=== PATIENT | male | born 1945 | race Caucasian/White ===

== ENCOUNTER 2021-07-12 11:56 | Inpatient (IN) | payer OTHER, MEDICAID ==
[~2021-07-12] VITALS: Ht 162.6 cm; Wt 53.5 kg
[2021-07-12] MEDS ORDERED: NACL 0.9% 1,000 ML IV SCH (12:00)
--- NOTE | 2021-07-12 12:00 | NUR ---
BIBA TO ER BED 12
[2021-07-12 12:05] VITALS: BP 125/52
[2021-07-12] MEDS ORDERED: MORPHINE SULFATE 4 MG/ML SYR IVP ONE (12:10)
[2021-07-12 13:00] LABS: BASOPHILS % (AUTO) 0.7 % (0.0-2.0); EOSINOPHILS # (AUTO) 0.1 K/uL (0-0.4); EOSINOPHILS % (AUTO) 1.5 % (0.0-4.0); HEMATOCRIT 39.6 % (36-52); HEMOGLOBIN 13.2 g/dL (12.0-18.0); LYMPHOCYTES # (AUTO) 1.1 K/uL (2.0-11.5); LYMPHOCYTES % (AUTO) 17.2 % (20.5-51.1); MEAN CORPUSCULAR HEMOGLOBIN 30 pg (27-31); MEAN CORPUSCULAR HGB CONC 33 g/dL (33-37); MONOCYTES # (AUTO) 0.4 K/uL (0.8-1.0); NEUTROPHILS # (AUTO) 4.6 K/uL (1.8-7.7); NEUTROPHILS % (AUTO) 73.6 % (42.2-75.2); PLATELET COUNT (AUTO) 173 K/uL (140-450); RED CELL DISTRIBUTION WIDTH 15.7 % (11.6-13.7); WHITE BLOOD COUNT (AUTO) 6.3 K/uL (4.8-10.8)
[2021-07-12 13:19] LABS: LIPASE 30 U/L (73-393)
--- NOTE | 2021-07-12 13:19 | NUR ---
PT UNABLE TO GIVE URINE AT THIS TIME. PT GIVEN CUP OF WATER, FLUIDS INFUSING. DR MARTINEZ MADE AWARE
[2021-07-12 13:23] LABS: ALBUMIN 3.4 g/dL (3.4-5.0); ANION GAP 12.5 (8-16); ASPARTATE AMINOTRANSFERASE 28 U/L (15-37); CARBON DIOXIDE 24.5 mmol/L (21-32); CHLORIDE 101 mmol/L (98-107); CREATININE 0.7 mg/dL (0.6-1.3); GLUCOSE 150 mg/dL (74-106); SODIUM SERUM 134 mmol/L (136-145); UREA NITROGEN, BLOOD 12 mg/dL (7-18)
--- NOTE | 2021-07-12 13:40 | NUR ---
MIMI MARADIAGA SAMPLE COLLECTED AND HANDED TO THERAPIST RADIATION
[2021-07-12] MEDS: DEXT 5% /NACL 0.9% 1,000 ML IV SCH (17:12)
--- NOTE | 2021-07-12 18:00 | NUR ---
Patient will be admitted to care of DR DAI. Admited to MED SURG. Will go to [facility]. Belongings list completed. Report to RN AT BEDSIDE.
--- NOTE | 2021-07-12 18:22 | NUR ---
PT ARRIVED ON TO UNIT VIA WHEELCHAIR, ACCOMPANIED BY ER NURSE. PT IS AWAKE, ALERT, AND COOPERATIVE. RESPIRATIONS ARE EVEN AND UNLABORED ON ROOM AIR, 02 SAT AT 98%. HR REGULAR, 78 BPM. ABD IS NONTENDER, NONDISTENDED, WITH BOWEL SOUNDS NOTED. SKIN IS WARM AND DRY. PT HAS IV TO R WRIST, 20. PT HAS L ABOVE THE KNEE AMPUTATION, PT STATES SURGERY IS FROM 2017. VITAL SIGNS TAKEN, MRSA SCREEN DONE. CALL LIGHT WITHIN REACH. ALL SAFETY MEASURES IN PLACE. WILL CONTINUE TO MONITOR.
[2021-07-12] MEDS ORDERED: ONDANSETRON 4 MG/2 ML VIAL IM/IVP PRN (19:05)
[2021-07-12] MEDS ORDERED: guaiFENesin DM 200/20 MG-10 ML 10 ML UDC PO PRN (19:05)
[2021-07-12] MEDS ORDERED: POTASSIUM CHLORIDE 10 MEQ TABER PO PRN (19:05)
[2021-07-12] MEDS ORDERED: ACETAMINOPHEN 325 MG TAB PO PRN (19:05)
[2021-07-12] MEDS ORDERED: DOCUSATE SODIUM 100 MG GELCAP PO PRN (19:05)
[2021-07-12] MEDS ORDERED: ZOLPIDEM 5 MG TAB PO PRN (19:05)
--- NOTE | 2021-07-12 19:10 | NUR ---
ENDORSED PT TO DIVISION CONTROLLER NURSE FOR CONTINUITY OF CARE. PT IS STABLE.
[2021-07-12 20:00] VITALS: BP 117/67
--- NOTE | 2021-07-12 20:03 | NUR ---
PER LAB - THEY GOT ALREADY URINE SPECIMEN FOR URINALYSIS PROFILE .
--- NOTE | 2021-07-12 20:04 | NUR ---
US STAFF AWARE - PT FOR US KIDNEYS , BLADDER - THEY HAVE TO WAIT TILL PT. IS FULL BLADDER , PER SWEETBREAD TRIMMER SHE ALREADY TOLD TO PT TO HOLD HIS URINE - WILL FF UP .
[2021-07-12 20:08] LABS: CHOL/HDL RATIO 2.2 (1-4.5); FREE T4 (FREE THYROXINE) 0.88 ng/dL (0.76-1.46); MAGNESIUM 2.1 mg/dL (1.8-2.4); PHOSPHORUS 3.4 mg/dL (2.5-4.9); PROTHROMBIN TIME 9.9 secs (10.8-13.4); THYROID STIMULATING HORMONE 1.67 uIU/mL (0.34-3.74)
[2021-07-12] MEDS: TAMSULOSIN 0.4 MG CAP PO SCH (21:00)
[2021-07-12] MEDS: BLOOD GLUCOSE MONITORING 1 DEV DEV FS SCH (21:35)
--- NOTE | 2021-07-12 21:35 | NUR ---
PT. MAD SHE HE SAID HE REQUESTED TO 2 NURSES EARLIER ABOUT HIS OXYCODONE 5MG /TAB - BUT UNTILL NOW NO ONE APPROACG TO HIM - I TOLD TO THE PT LOLYO ONE TOLD ME ABOUT GHID REQUEST - BUT I WILL TELL IT TO THE DOCTOR . HE SAID HE NEED IT VERY BADLY BEC . HE IS SUFFERING PHANTOM PAIN .
[2021-07-12] MEDS: HYDROcodone/APAP 7.5/325 MG 1 TAB PO PRN (23:11)
[2021-07-13] VITALS: BP_SYST 115; BP_DIAS 70; BP_DIAS 82
--- NOTE | 2021-07-13 02:41 | NUR ---
FF UP REGARDING URINALYSIS PROFILE - PER LAB THE URINE THEY RECEIVED FROM ER IS VERY OLD . WILL COLLECT NEW ONE .
[2021-07-13 04:00] VITALS: BP 111/71
--- NOTE | 2021-07-13 04:00 | NUR ---
ROUNDS , BP WNL , O2 SAT WNL , BEARABLE LEG PAIN HE SAID. CALL LIGHT WITHIN REACH .
[2021-07-13] MEDS: HYDROcodone/APAP 7.5/325 MG 1 TAB PO PRN (05:18)
[2021-07-13] MEDS: DEXT 5% /NACL 0.9% 1,000 ML IV SCH ×2 (05:28→19:41)
--- NOTE | 2021-07-13 06:00 | NUR ---
URINE SPECIMEN WILL SENT TO LAB .
[2021-07-13 06:10] LABS: APPEARANCE,URINE CLEAR (CLEAR); BILIRUBIN,URINE NEGATIVE (NEGATIVE); BLOOD, URINE NEGATIVE (NEGATIVE); COLOR,URINE YELLOW (YELLOW); LEUKOCYTE ESTERASE ,URINE NEGATIVE (NEGATIVE); NITRITE, URINE NEGATIVE (NEGATIVE); UGLUCOSE 3+ (NEGATIVE)
[2021-07-13 06:18] LABS: ANION GAP 8.3 (8-16); CARBON DIOXIDE 26.5 mmol/L (21-32); CHLORIDE 103 mmol/L (98-107); CREATININE 0.7 mg/dL (0.6-1.3); GLUCOSE 267 mg/dL (74-106); POTASSIUM 3.8 mmol/L (3.5-5.1); SODIUM SERUM 134 mmol/L (136-145); UREA NITROGEN, BLOOD 11 mg/dL (7-18)
[2021-07-13 06:21] LABS: BASOPHILS # (AUTO) 0.1 K/uL (0.00-0.22); BASOPHILS % (AUTO) 0.9 % (0.0-2.0); EOSINOPHILS # (AUTO) 0.1 K/uL (0-0.4); EOSINOPHILS % (AUTO) 1.3 % (0.0-4.0); HEMATOCRIT 35.7 % (36-52); HEMOGLOBIN 11.9 g/dL (12.0-18.0); LYMPHOCYTES % (AUTO) 16.2 % (20.5-51.1); MEAN CORPUSCULAR HEMOGLOBIN 30 pg (27-31); MEAN CORPUSCULAR HGB CONC 33 g/dL (33-37); MEAN CORPUSCULAR VOLUME 88.9 fL (80-94); MONOCYTES # (AUTO) 0.4 K/uL (0.8-1.0); MONOCYTES % (AUTO) 6.9 % (1.7-9.3); NEUTROPHILS # (AUTO) 4.7 K/uL (1.8-7.7); NEUTROPHILS % (AUTO) 74.7 % (42.2-75.2); PLATELET COUNT (AUTO) 175 K/uL (140-450); RED BLOOD CELL COUNT(AUTO) 4.01 MIL/uL (4.20-6.10); RED CELL DISTRIBUTION WIDTH 15.4 % (11.6-13.7); WHITE BLOOD COUNT (AUTO) 6.2 K/uL (4.8-10.8)
--- NOTE | 2021-07-13 06:30 | NUR ---
REVIEWING THE IVF - FOUND PT IS NOT NPO , ON REG , DIET - ON D5 NSS , AT 150 CC OF PRESENT IVF DEC. REG. FROM 75 TO 15 - WILL INFORM DR. DAI IF HE AGREE W/ D5 NSS - WILL REG BACK TO 75CC/HR .- WILL ENDORSE .
--- NOTE | 2021-07-13 06:59 | NUR ---
PATIENT HAS BEEN SCREENED AND CATEGORIZED MODERATE NUTRITION RISK. PATIENT WILL BE SEEN WITHIN 3-5 DAYS OF ADMISSION. / BRE [address]
[2021-07-13] MEDS: INSULIN LISPRO SLIDING SCALE 100 UNITS/ML VIAL SUBQ PRN ×3 (07:04→17:29)
[2021-07-13] MEDS: BLOOD GLUCOSE MONITORING 1 DEV DEV FS SCH ×4 (07:04→21:45)
[2021-07-13 07:09] LABS: T4 (THYROXINE) 6.8 ug/dL (4.5-12.0)
--- NOTE | 2021-07-13 07:35 | NUR ---
ENDORSED TO PATEL WRAY - I TOLD HER I DECREASEED THE IVF TO 15CC /HR AT AROUND 06:30 AM AND I INFORMED DR. DAI ABOUT IT THRU TEXT - I TOLD TO PATEL KWON SHE HAVE TO FF UP IF DR. DAI WILL HAVE FURTHER ORDERS ABOUT IT . Addendum: 07/13/21 at 08 by Pam De La Garza RN PER US SCHOOL BUS DRIVER THEY DONE KIDNEYS US AT INCLUDING THE ED US BLADDER . Addendum: 07/13/21 at 0803 by Pam De La Garza RN I SHOWED TO PATEL FONSECA MY TEXT MSG TO DR. DAI . I INFORM DR. DAI AT 0500 AM PT HAD SLIGHT CHEST PAIN , BUT ALL V/S ARE OK .
[2021-07-13 07:43] LABS: RBC,URINE 0-5 /HPF (0-5); WBC,URINE 0-5 /HPF (0-5)
[2021-07-13 07:44] LABS: CALCIUM OXALATE CRYSTALS,UR None Seen /HPF (None Seen); OTHER CRYSTALS,URINE None Seen /HPF (None Seen); TRICHOMONAS,URINE None Seen /HPF (None Seen); TRIPLE PHOSPHATE CRYSTAL,UR None Seen /HPF (None Seen); URIC ACID CRYSTALS,URINE None Seen /HPF (None Seen); URINE AMORPHOUS URATE None Seen /HPF (None Seen); YEAST,URINE None Seen /HPF (None Seen)
[2021-07-13 07:45] LABS: COARSE GRANULAR CASTS,URINE None Seen /LPF (None Seen); FINE GRANULAR CASTS,URINE None Seen /LPF (None Seen); HYALINE CASTS, URINE None Seen /LPF (None Seen); OTHER CASTS, URINE None Seen /LPF (None Seen); RED BLOOD CELL CASTS,URINE None Seen /LPF (None Seen); WAXY CASTS,URINE None Seen /LPF (None Seen)
[2021-07-13 08:00] VITALS: BP 104/53
[2021-07-13] MEDS: TAMSULOSIN 0.4 MG CAP PO SCH (09:00)
[2021-07-13] MEDS: PANTOPRAZOLE 40 MG TABEC PO SCH (09:00)
--- NOTE | 2021-07-13 09:10 | NUR ---
RECEIVED ENDORSEMENT FROM PM SHIFT NURSE WITH PATIENT IN STABLE CONDITION. BARRY METZGER PATENT. INFORMED DR. DAI THAT PATIENT HAS DM, AND IV FLUID D5NS HAS SUGAR PER PM NURSE ENDORSEMENT. DR. DAI STATE THAT IS OKAY BECAUSE PATIENT HAS NOT EAT GOOD FOR FEW DAYS. WILL CONTINUE TO MONITOR
--- NOTE | 2021-07-13 10:18 | NUR ---
P.T. NOTES P.T. EVAL COMPLETED; REFER TO EVAL FOR DETAILS.
--- NOTE | 2021-07-13 11:42 | NUR ---
DC PLANNIN YRS OLD MALE PATIENT WAS ADMITTED FROM HOME WITH A DX OF ABDOMINAL PAIN . PATIENT HAS A HISTORY OF HTN,DM, CAD S/P 2 CARDIAC STENTS AND AORTIC VALVE REPLACEMENT. BPH, AND LEFT AKA. CXR SHOWING LEFT APICAL SCARING AND FIBROSIS. CT ABD/PELVIS SHOWED NO BOWEL OBSTRUCTION . RENAL US SHOWED CHRONIC MEDICAL RENAL DISEASE. RAPID COVID TEST NEGATIVE. ADMINISTERED IVF, AND CONTINUED HOME MEDS. DC PLAN TO RETURN TO [facility] WHEN STABLE. CM TO FOLLOW
[2021-07-13 16:00] VITALS: BP 118/59
--- NOTE | 2021-07-13 19:47 | NUR ---
ENDORSE PT TO PM SHIFT W/ STABLE CONDITION, PIV Daniela HAND PATENT. IV INFUSING
[2021-07-13 20:00] VITALS: BP 120/61
--- NOTE | 2021-07-13 20:00 | NUR ---
REVIEWED AND DISCUSSED PLAN OF CARE WITH INDRA BARTH
[2021-07-14] VITALS: BP 115/64
[2021-07-14 04:00] VITALS: BP 126/64
[2021-07-14] MEDS: BLOOD GLUCOSE MONITORING 1 DEV DEV FS SCH ×2 (06:34→11:26)
[2021-07-14] MEDS: INSULIN LISPRO SLIDING SCALE 100 UNITS/ML VIAL SUBQ PRN ×2 (06:36→12:21)
--- NOTE | 2021-07-14 07:05 | NUR ---
ENDORSED REPORT TO AM NURSE FOR CONTINUITY OF CARE. ALL NEEDS MET THIS SHIFT. PT NEEDS A WALKER AND A W/C FOR CONTINUED AMBULATION SUPPORT. A&OX4. INDEPENDENT TO BATHROOM WILL CALL TO HAVE IVF UNHOOKED. NAD. WILL CONTINUE TO MONITOR.
--- NOTE | 2021-07-14 07:10 | NUR ---
RECEIVED REPORT FROM CITY EDITOR NURSE FOR CONTINUITY OF CARE. PT ASLEEP IN BED, BREATHING SYMMETRICAL ON ROOM AIR. FLACC O. LEFT WRIST 22G RUNNING D5NS AT 75CC. CALL LIGHT WITHIN REACH. ALL SAFETY MEASURES IN PLACE.
[2021-07-14 07:22] LABS: EOSINOPHILS # (AUTO) 0.1 K/uL (0-0.4); HEMOGLOBIN 11.7 g/dL (12.0-18.0); LYMPHOCYTES % (AUTO) 24.2 % (20.5-51.1); MEAN CORPUSCULAR HEMOGLOBIN 30 pg (27-31); MEAN CORPUSCULAR HGB CONC 33 g/dL (33-37); MEAN CORPUSCULAR VOLUME 88.9 fL (80-94); MONOCYTES # (AUTO) 0.4 K/uL (0.8-1.0); MONOCYTES % (AUTO) 9.5 % (1.7-9.3); NEUTROPHILS # (AUTO) 2.6 K/uL (1.8-7.7); NEUTROPHILS % (AUTO) 63.3 % (42.2-75.2); PLATELET COUNT (AUTO) 188 K/uL (140-450); RED BLOOD CELL COUNT(AUTO) 3.94 MIL/uL (4.20-6.10); RED CELL DISTRIBUTION WIDTH 15.7 % (11.6-13.7)
[2021-07-14 07:28] LABS: ANION GAP 13.7 (8-16); CARBON DIOXIDE 23.8 mmol/L (21-32); CHLORIDE 103 mmol/L (98-107); CREATININE 0.6 mg/dL (0.6-1.3); GLUCOSE 211 mg/dL (74-106); POTASSIUM 3.5 mmol/L (3.5-5.1); SODIUM SERUM 137 mmol/L (136-145); UREA NITROGEN, BLOOD 5 mg/dL (7-18)
[2021-07-14] MEDS ORDERED: MIRT-91 PO (07:37)
[2021-07-14 08:00] VITALS: BP 126/69
[2021-07-14] MEDS: DEXT 5% /NACL 0.9% 1,000 ML IV SCH (08:08)
[2021-07-14] MEDS: TAMSULOSIN 0.4 MG CAP PO SCH (08:19)
[2021-07-14] MEDS: PANTOPRAZOLE 40 MG TABEC PO SCH (08:20)
--- NOTE | 2021-07-14 08:34 | NUR ---
SCHEDULED AM MEDICATION GIVEN ORDERED. ASSISTED PT TO RESTROOM, PT WITH LEFT LEG AKA. PT FOR DISCHARGE TODAY
--- NOTE | 2021-07-14 08:44 | NUR ---
CURRENT INFUSING IVF STILL HAS 300CC LEFT.
[2021-07-14 08:48] VITALS: BP 126/69
--- NOTE | 2021-07-14 10:50 | NUR ---
CALLED [facility] AND PROVIDED THE TRANSPORTATION CODE #[id number]. CALLED [facility] AND SPOKE TO WENDY THOMAS TIME FOR TIRE SHOP MECHANIC IS 2 PM. PATEL BILLY MADE AWARE.
--- NOTE | 2021-07-14 11:50 | NUR ---
CALLED JOSE FROM [facility] AND GAVE REPORT. CALLED DAUGHTER SARAH, LEFT A MESSAGE
--- NOTE | 2021-07-14 14:12 | NUR ---
PT DISCHARGED BACK TO [facility] PICKED UP BY [facility] VIA WHEELCHAIR WITH PAPERWORKS AND BELONGINGS, IN STABLE CONDITION
== END 2021-07-14 14:05 | disposition home or self-care (01) | DRG 391 ==
LOC: MED 11:56 → MTU 15:20 → MMU 15:20 → MTU 18:00
PROVIDERS: ADMIT Family Medicine; ATTEND Family Medicine
DX: R10.30 Lower abdominal pain, unspecified (principal); I50.43 Acute on chronic combined systolic (congestive) and diastolic (congestive) heart failure; E87.1 Hypo-osmolality and hyponatremia; I24.9 Acute ischemic heart disease, unspecified; T82.857A Stenosis of other cardiac prosthetic devices, implants and grafts, initial encounter; E11.65 Type 2 diabetes mellitus with hyperglycemia; R62.7 Adult failure to thrive; D64.9 Anemia, unspecified; N20.0 Calculus of kidney; E86.0 Dehydration; K59.00 Constipation, unspecified; N40.0 Benign prostatic hyperplasia without lower urinary tract symptoms; I11.0 Hypertensive heart disease with heart failure; Z20.822 Contact with and (suspected) exposure to COVID-19; Y83.1 Surgical operation with implant of artificial internal device as the cause of abnormal reaction of the patient, or of later complication, without mention of misadventure at the time of the procedure; I25.10 Atherosclerotic heart disease of native coronary artery without angina pectoris; F32.A Depression, unspecified; E78.5 Hyperlipidemia, unspecified; E11.51 Type 2 diabetes mellitus with diabetic peripheral angiopathy without gangrene; Z79.01 Long term (current) use of anticoagulants; Z95.2 Presence of prosthetic heart valve; Z88.8 Allergy status to other drugs, medicaments and biological substances; Z95.5 Presence of coronary angioplasty implant and graft; Z89.612 Acquired absence of left leg above knee; Z87.442 Personal history of urinary calculi; Z85.810 Personal history of malignant neoplasm of tongue; Y92.89 Other specified places as the place of occurrence of the external cause; Z68.20 Body mass index [BMI] 20.0-20.9, adult
CPT/HCPCS: 36415; 71045; 76770; 80048; 80053; 81001; 82150; 82948; 83036; 83605; 83690; 83735; 83880; 84100; 84436; 84439; 84443; 84479; 84484; 85025; 85610; 85730; 87040; 87081; 87086; 92610; 93005; 96360; 97110; 97112; 99285; J1815; J2270; J7030; Q0092

== ENCOUNTER 2021-07-17 07:26 | Emergency (ER) | payer OTHER, MEDICAID ==
[~2021-07-17] VITALS: Ht 162.6 cm; Wt 53.5 kg
[~2021-07-17 07:26] MED LIST: MIRT-91 PO
[2021-07-17 07:29] VITALS: BP 139/59
[2021-07-17] MEDS ORDERED: KETOROLAC 30 MG/ML VIAL IM ONE (07:50)
--- NOTE | 2021-07-17 08:18 | NUR ---
ULTRASOUND AT BEDSIDE
--- NOTE | 2021-07-17 13:00 | NUR ---
Patient to be transferred to [facility]. Is being transferred due to LOWER LEVEL OF CARE. Receiving facility has accepting physician and available space. ER physician has signed transfer form. Patient or responsible republican has agreed to transfer and signed form. Patient belongings inventoried and will be sent with patient. Copy of nursing notes, lab reports, EKG, Physicians Orders and X-rays to be sent with patient. Report called to RN at receiving facility. [facility] has been called for transfer. ETA is 1430
[2021-07-17 14:42] VITALS: BP 135/62
--- NOTE | 2021-07-17 14:47 | NUR ---
PATIENT ACCOMPANIED BY [facility] [place]. ASSISTED BY WHEEL CHAIR PATIENT AAOX4 UPON LEAVING THE HOSPITAL, NO COMPLAINTS AT THE MOMENT, IMAGING RESULTS PROVIDED
== END 2021-07-17 14:47 ==
LOC: MED 07:26
DX: I70.208 Unspecified atherosclerosis of native arteries of extremities, other extremity (principal); E11.9 Type 2 diabetes mellitus without complications; I10 Essential (primary) hypertension; Z98.890 Other specified postprocedural states; Z79.899 Other long term (current) drug therapy; Z88.8 Allergy status to other drugs, medicaments and biological substances
CPT/HCPCS: 73030; 73080; 93922; 93930; 93971; 96372; 99284; J1885; Q0092

== ENCOUNTER 2021-09-26 13:48 | Inpatient (IN) | payer OTHER ==
[~2021-09-26] VITALS: Ht 162.6 cm; Wt 53.3 kg
[2021-09-26] VITALS (7 sets, daily range): BP systolic 94–142; BP diastolic 56–74
[~2021-09-26 13:48] MED LIST changes: +ASPI-1822 PO; +ATOR20TA PO; +CEPH-588 PO; +CLOP75TA26 PO; +FURO-572 PO
--- NOTE | 2021-09-26 14:02 | NUR ---
KAMRAN MURGUIA FROM [facility] TAKEN TO ER BED 2.
[2021-09-26] MEDS ORDERED: ALBUTEROL SULFATE/IPRATROPIU 3 ML SOL IH ONE ×3 (14:03→17:15)
--- NOTE | 2021-09-26 14:04 | NUR ---
DR. DE LA TORRE AT PT BEDSIDE FOR FURTHER EVALUATION.
[2021-09-26] MEDS ORDERED: methylPREDNISolone SS 125 MG/2 ML VIAL IVP ONE (14:05)
[2021-09-26] MEDS ORDERED: INTUBATION KIT MC ONE (14:06)
--- NOTE | 2021-09-26 14:14 | NUR ---
PT PLACED ON BIPAP PER RT 50% FI02. ERMD AT BEDSIDE.
--- NOTE | 2021-09-26 14:18 | NUR ---
RT AT PT BEDSIDE FOR BREATHING TX.
--- NOTE | 2021-09-26 14:20 | NUR ---
76 Y/O MALE BIBA FROM [facility] C/O SOB X1HR. MS EMT PT WAS FOUND TRIPOD POSITION 84% ON 2L NC. PT PLACED ON 15L NRB. ON ARRIVAL PT TITRATED DOWN TO 2L NC. PT SPO2 87%. ERMD MADE AWARE. PT STILL TRIPOD POSITION DIAPHORETIC. ERMD TO BEDSIDE AND RT TO BEDSIDE. PER EMD PREPARING FOR BIPAP AT THIS TIME. DENIES N/V/D, DENIES FEVER/CHILLS. PMH: DM, HTN, HLD, COPD, LEFT BKA. ALLERGIES: METFORMIN
--- NOTE | 2021-09-26 14:22 | NUR ---
RT AT PT BEDSIDE FOR BREATHING TX AND ABG.
--- NOTE | 2021-09-26 14:22 | NUR ---
COURT CRIER AT PT BEDSIDE.
[2021-09-26 14:32] LABS: BASOPHILS # (AUTO) 0.2 K/uL (0.00-0.22); EOSINOPHILS # (AUTO) 0.1 K/uL (0-0.4); EOSINOPHILS % (AUTO) 0.9 % (0.0-4.0); HEMATOCRIT 39.5 % (36-52); HEMOGLOBIN 12.9 g/dL (12.0-18.0); LYMPHOCYTES # (AUTO) 2.7 K/uL (2.0-11.5); LYMPHOCYTES % (AUTO) 34.8 % (20.5-51.1); MEAN CORPUSCULAR HEMOGLOBIN 29 pg (27-31); MEAN CORPUSCULAR HGB CONC 33 g/dL (33-37); MEAN CORPUSCULAR VOLUME 90.1 fL (80-94); MONOCYTES # (AUTO) 0.5 K/uL (0.8-1.0); MONOCYTES % (AUTO) 6.4 % (1.7-9.3); NEUTROPHILS # (AUTO) 4.2 K/uL (1.8-7.7); NEUTROPHILS % (AUTO) 54.9 % (42.2-75.2); PLATELET COUNT (AUTO) 231 K/uL (140-450); RED BLOOD CELL COUNT(AUTO) 4.38 MIL/uL (4.20-6.10); RED CELL DISTRIBUTION WIDTH 16.1 % (11.6-13.7); WHITE BLOOD COUNT (AUTO) 7.7 K/uL (4.8-10.8)
--- NOTE | 2021-09-26 14:34 | NUR ---
PT PLACED ON BIPAP / RR 20 FIO2 40%. PT STATES RELIEF IN WOB. ABG TO BE DONE AT 1445. RN AND AWARE.
--- NOTE | 2021-09-26 14:47 | NUR ---
Meagan ribeiro in [facility] - 09/26/21 at 1456 by [email or web address] MIMI MARADIAGA SAMPLE COLLECTED AND WALKED TO LAB
--- NOTE | 2021-09-26 14:51 | NUR ---
COVID ASHWINI SWAB OBTAINED AND WALKED TO LAB
[2021-09-26 14:57] LABS: ALBUMIN 3.1 g/dL (3.4-5.0); ANION GAP 13.9 (8-16); ASPARTATE AMINOTRANSFERASE 58 U/L (15-37); CARBON DIOXIDE 24.6 mmol/L (21-32); CHLORIDE 102 mmol/L (98-107); GLUCOSE 182 mg/dL (74-106); POTASSIUM 4.5 mmol/L (3.5-5.1); SODIUM SERUM 136 mmol/L (136-145); TOTAL BILIRUBIN 0.7 mg/dL (0.0-1.0); UREA NITROGEN, BLOOD 14 mg/dL (7-18)
[2021-09-26] MEDS ORDERED: FUROSEMIDE 100 MG/10 ML VIAL IVP ONE (15:10)
[2021-09-26] MEDS ORDERED: VANCOMYCIN 1,000 MG in DEXTROSE 5% 250 ML IV ONE (15:25)
[2021-09-26] MEDS ORDERED: PIPERACILLIN/TAZOBACTAM 3.375 GM in DEXTROSE 5% 50 ML IV ONE (15:25)
[2021-09-26] MEDS ORDERED: PIPERACILLIN/TAZOBACTAM 3.375 GM VIAL IV ONE (15:50)
[2021-09-26] MEDS ORDERED: VANCOMYCIN 1,000 MG VIAL ONE (16:17)
--- NOTE | 2021-09-26 16:52 | NUR ---
Patient will be admitted to care of DR. REED. Belongings list completed. ER HOLD BED 2.
[2021-09-26] MEDS ORDERED: ZOLPIDEM 5 MG TAB PO PRN (17:10)
[2021-09-26] MEDS ORDERED: HYDROcodone/APAP 5/325 MG 1 TAB TAB PO PRN (17:10)
[2021-09-26] MEDS ORDERED: ACETAMINOPHEN 325 MG TAB PO PRN (17:10)
[2021-09-26] MEDS ORDERED: DOCUSATE SODIUM 100 MG GELCAP PO PRN (17:10)
[2021-09-26] MEDS ORDERED: SODIUM PHOS / POTASSIUM PHOS 1 PKT PDR PO PRN (17:10)
[2021-09-26] MEDS ORDERED: ONDANSETRON 4 MG/2 ML VIAL IVP PRN (17:10)
[2021-09-26] MEDS ORDERED: MAG SULF 2000 MG/WATER PREMIX 50 ML IV PRN (17:10)
[2021-09-26] MEDS ORDERED: MORPHINE SULFATE 2 MG/ML SYR IVP PRN (17:10)
[2021-09-26] MEDS ORDERED: LORazepam 2 MG/ML VIAL IM/IVP PRN (17:10)
[2021-09-26] MEDS ORDERED: POTASSIUM CHLORIDE 10 MEQ TABER PO PRN (17:10)
[2021-09-26] MEDS ORDERED: LORazepam 1 MG TAB PO PRN (17:20)
--- NOTE | 2021-09-26 17:31 | NUR ---
DR. REED AT PT BEDSIDE FOR FURTHER EVALUATION.
[2021-09-26] MEDS ORDERED: DEXTROSE 50% 50 ML SYR IVP PRN (17:35)
[2021-09-26] MEDS: NACL 0.9% 1,000 ML IV SCH (17:48)
--- NOTE | 2021-09-26 17:57 | NUR ---
PT BP 78/[address] REED LEVO TO BE STARTED PERIPHERAL.
[2021-09-26] MEDS ORDERED: FUROSEMIDE 20 MG/2 ML VIAL IVP SCH (18:00)
[2021-09-26] MEDS ORDERED: ENOXAPARIN 60 MG/0.6 ML SYR SUBQ SCH (18:00)
[2021-09-26] MEDS ORDERED: NOREPINEPHRINE 4 MG in DEXTROSE 5% 250 ML IV PRN (18:00)
--- NOTE | 2021-09-26 18:03 | NUR ---
SPOKE WITH LISANDRO IN PHARMACY FOR LEVO DRIP.
[2021-09-26] MEDS ORDERED: SLIDE SUBQ (18:13)
--- NOTE | 2021-09-26 18:25 | NUR ---
RI TAKEN TO ICU BED 2 WITH AIR CONDITIONING UNIT TESTER, EMT, AND RT. RECEIVED BEDSIDE REPORT FROM MAGALY AIR CONDITIONING UNIT TESTER FOR CONTINUITY OF CARE. PT SITTING UP IN THE BED, AAOX4, LETHARGIC, FOLLOWS COMMANDS. ON BIPAP FIO2 25%, R 20, IPAP 12, EPAP 6. PT HAS LABORED BREATHING WITH ACCESSORY MUSCLE USE. ST ON BEDSIDE MONITOR. HR 108, BP 118/71. BOWEL SOUNDS ACTIVE. CONTINENT OF BOWEL AND BLADDER. URINAL AT BEDSIDE. MILD WEAKNESS, SKIN INTACT. L HAND 20G INFUSING NS AT 100 ML/HR. LEVOPHED ON STANDBY, DID NOT ADMINISTER YET. STANDARD PRECAUTIONS IN PLACE. SAFETY PRECAUTIONS MET. CALL LIGHT WITHIN REACH. INITIAL ASSESSMENT COMPLETE, WILL CONTINUE TO CLOSELY MONITOR.
[2021-09-26 18:33] LABS: CHOL/HDL RATIO 2.4 (1-4.5); FREE T4 (FREE THYROXINE) 2.28 ng/dL (0.76-1.46); PHOSPHORUS 3.3 mg/dL (2.5-4.9); THYROID STIMULATING HORMONE 0.27 uIU/mL (0.34-3.74)
--- NOTE | 2021-09-26 18:36 | NUR ---
GAVE REPORT TO PATEL AMAYA AT ICU BEDSIDE.
--- NOTE | 2021-09-26 18:37 | NUR ---
Patient will be admitted to care of DR. REED. Admited to ICU. Will go to room 2. Belongings list completed. Report to PATEL AMAYA.
[2021-09-26] MEDS ORDERED: ALBUTEROL SULFATE/IPRATROPIU 3 ML SOL IH PRN (18:55)
--- NOTE | 2021-09-26 19:20 | NUR ---
DR SANCHEZ AT BEDSIDE.UPDATED ON PTS PRESENT CONDITION.QUESTIONS ANSWERED.NO ORDERS RECEIVED AT THIS TIME
--- NOTE | 2021-09-26 19:20 | NUR ---
ENDORSED BEDSIDE REPORT TO LANRE LEDESMA RN FOR CONTINUITY OF CARE. PT HAS LABORED BREATHING, ACCESSORY MUSCLE USE, AND ANXIETY AT THIS TIME. VSS. BP 115/67. SPO2 96%.
[2021-09-26 19:22] LABS: APPEARANCE,URINE CLEAR (CLEAR); BILIRUBIN,URINE NEGATIVE (NEGATIVE); BLOOD, URINE NEGATIVE (NEGATIVE); COLOR,URINE YELLOW (YELLOW); LEUKOCYTE ESTERASE ,URINE NEGATIVE (NEGATIVE); NITRITE, URINE NEGATIVE (NEGATIVE); UGLUCOSE NEGATIVE (NEGATIVE)
--- NOTE | 2021-09-26 19:30 | NUR ---
ASSUMED CARE OF PT.INITIAL ASSESSMENT COMPLETED.PT ALERT AND ORIENTED X4.ST NOTED ON MONITOR.ON BIPAP 03/05 RATE 20 FI02 25%.SOB ON EXERTION NOTED.W/PERIPHERAL IV TO LT HAND G20 INTACT, INFUSING ORDERED IVF.DENIES N/V.ABLE TO USE URINAL.SKIN INTACT.W/LT AKA NOTED.DENIES PAIN AT THIS TIME.WILL CONTINUE TO CLOSELY MONITOR PT
[2021-09-26 19:33] LABS: PROTHROMBIN TIME 10.5 secs (10.8-13.4)
[2021-09-26] MEDS: BLOOD GLUCOSE MONITORING 1 DEV DEV FS SCH (20:35)
[2021-09-26] MEDS: INSULIN LISPRO SLIDING SCALE 100 UNITS/ML VIAL SUBQ PRN (20:39)
[2021-09-26] MEDS ORDERED: LOVENOX 1MG/KG Q12H SUBQ SCH (21:00)
--- NOTE | 2021-09-26 21:00 | NUR ---
MESSAGE SENT TO DR REED, PT WANTS TO DRINK,NO DIET ORDERED.NEW ORDER RECEIVED.PLACED PT ON DIABETIC/CARDIAC DIET
[2021-09-26] MEDS ORDERED: VANCOMYCIN PER PHARMACY MC PRN (22:00)
[2021-09-26] MEDS: PIPERACILLIN/TAZOBACTAM 3.375 GM in DEXTROSE 5% 50 ML IV SCH (22:16)
--- NOTE | 2021-09-26 23:50 | NUR ---
PHONE CALL FROM DR REED; UPDATED ON PTSP RESENT CONDITION.MADE AWARE PT WAS COMPLAINING OF CHEST PAIN 5/10 EARLIER, PT HAS MORPHINE PRN MEDS AND GIVEN AT THE TIME OF CHEST PAIN.NO NEW ORDERS RECEIVED
[2021-09-27] VITALS (13 sets, daily range): BP systolic 88–134; BP diastolic 56–78
--- NOTE | 2021-09-27 00:48 | NUR ---
MRSA AND FLU SPECIMEN COLLECTED AND SENT TO LAB.
--- NOTE | 2021-09-27 01:00 | NUR ---
PT AWAKE, VOIDED USING URINAL, ADEQUATE AMT OF CLEAR YELLOW URINE. SAFETY PRECAUTION IN PLACE.CALL LIGHT WITHIN REACH
--- NOTE | 2021-09-27 02:34 | NUR ---
PT ASLEEP, EASILY AROUSABLE.STILL ON BIPAP FIO2 25%.INTERMITTENT NON PRODUCTIVE COUGHING NOTED. NO S/SX OF PAIN NOTED.CALL LIGHT WITHIN REACH.WILL CONTINUE TO CLOSELY MONITOR PT
[2021-09-27] MEDS: NACL 0.9% 1,000 ML IV SCH ×3 (03:00→23:10)
[2021-09-27] MEDS ORDERED: VANCOMYCIN HCL 750 MG in DEXTROSE 5% 250 ML IV SCH (04:30)
[2021-09-27] MEDS: PIPERACILLIN/TAZOBACTAM 3.375 GM in DEXTROSE 5% 50 ML IV SCH ×3 (05:18→21:43)
--- NOTE | 2021-09-27 05:24 | NUR ---
PT AWAKE; OFFERED MORNING CARE, PT REFUSED, STATED "IT'S TOO COLD".CONDITION REMAINS UNCHANGED.STILL ON BIPAP 25% FIO2.SOB ON EXERTION STILL NOTED.DENIES PAIN AT THIS TIME
[2021-09-27 05:32] LABS: BASOPHILS % (AUTO) 0.3 % (0.0-2.0); HEMATOCRIT 33.5 % (36-52); HEMOGLOBIN 11.1 g/dL (12.0-18.0); LYMPHOCYTES # (AUTO) 0.6 K/uL (2.0-11.5); LYMPHOCYTES % (AUTO) 20.8 % (20.5-51.1); MEAN CORPUSCULAR HEMOGLOBIN 30 pg (27-31); MEAN CORPUSCULAR HGB CONC 33 g/dL (33-37); MEAN CORPUSCULAR VOLUME 89.9 fL (80-94); MONOCYTES # (AUTO) 0.1 K/uL (0.8-1.0); MONOCYTES % (AUTO) 2.3 % (1.7-9.3); NEUTROPHILS # (AUTO) 2.2 K/uL (1.8-7.7); NEUTROPHILS % (AUTO) 76.6 % (42.2-75.2); PLATELET COUNT (AUTO) 218 K/uL (140-450); RED BLOOD CELL COUNT(AUTO) 3.73 MIL/uL (4.20-6.10); RED CELL DISTRIBUTION WIDTH 16.2 % (11.6-13.7); WHITE BLOOD COUNT (AUTO) 2.8 K/uL (4.8-10.8)
[2021-09-27 06:11] LABS: ALBUMIN 2.7 g/dL (3.4-5.0); ASPARTATE AMINOTRANSFERASE 33 U/L (15-37); CHLORIDE 100 mmol/L (98-107); CREATININE 1.1 mg/dL (0.6-1.3); GLUCOSE 400 mg/dL (74-106); MAGNESIUM 1.7 mg/dL (1.8-2.4); SODIUM SERUM 135 mmol/L (136-145); TOTAL BILIRUBIN 0.6 mg/dL (0.0-1.0); UREA NITROGEN, BLOOD 22 mg/dL (7-18)
--- NOTE | 2021-09-27 07:15 | NUR ---
RECEIVED BEDSIDE REPORT FROM LANRE LEDESMA RN FOR CONTINUITY OF CARE. PT SITTING UP IN THE BED, AAOX4, LETHARGIC, FOLLOWS COMMANDS. ON BIPAP FIO2 25%, R 20, IPAP 12, EPAP 6. SR ON BEDSIDE MONITOR. BOWEL SOUNDS ACTIVE. CONTINENT OF BOWEL AND BLADDER. URINAL AT BEDSIDE. MILD WEAKNESS, SKIN INTACT. L HAND 20G INFUSING NS AT 100 ML/HR. LEVOPHED ON STANDBY. BP 117/62. STANDARD PRECAUTIONS IN PLACE. SAFETY PRECAUTIONS MET. CALL LIGHT WITHIN REACH. INITIAL ASSESSMENT COMPLETE, WILL CONTINUE TO CLOSELY MONITOR.
[2021-09-27] MEDS: BLOOD GLUCOSE MONITORING 1 DEV DEV FS SCH ×4 (07:39→21:49)
[2021-09-27] MEDS: INSULIN LISPRO SLIDING SCALE 100 UNITS/ML VIAL SUBQ PRN ×3 (07:44→21:52)
[2021-09-27] MEDS: ENOXAPARIN 60 MG/0.6 ML SYR SUBQ SCH ×2 (07:45→21:43)
--- NOTE | 2021-09-27 07:46 | NUR ---
PT IS AWAKE AND ALERT, SPOKE WITH RN, PT IS SATURATING 96% ON 25%FIO2. PT IS ON LASIK AND BREATH SOUNDS ARE CLEAR, WILL PLACE PT ON 2L N/C AT THIS TIME AND CONTINUE TO MONITOR.
--- NOTE | 2021-09-27 08:05 | NUR ---
RECEIVED CALL FROM CIRCULAR CLERK, PT WAS IN DISTRESS, SATURATION WERE 95%, PT WAS TRIPODING AND GRUNTING, PLACED PATIENT ON BI-PAP AT PREVIOUS SETTINGS. PATIENT WAS IN NO DISTRESS AND COMFORTABLE ON THE BI-PAP, SATURATION 97%, BREATH SOUNDS WERE CLEAR. WILL CONTINUE TO MONITOR
[2021-09-27] MEDS: FUROSEMIDE 40 MG/4 ML VIAL IVP SCH ×2 (08:08→17:24)
--- NOTE | 2021-09-27 08:12 | NUR ---
PATIENT HAS BEEN SCREENED AND CATEGORIZED HIGH NUTRITION RISK. PATIENT WILL BE SEEN WITHIN 1-2 DAYS OF ADMISSION. [address]
--- NOTE | 2021-09-27 09:15 | NUR ---
SEEN AND EXAMINED BY DR REED
--- NOTE | 2021-09-27 09:54 | NUR ---
RECEIVED PHONE CALL FROM PT FAMILYSARAH. UPDATED REGARDING PT CONDITION. ALL QUESTIONS ANSWERED AT THIS TIME.
[2021-09-27] MEDS: LORazepam 2 MG/ML VIAL IVP PRN (11:20)
--- NOTE | 2021-09-27 11:20 | NUR ---
PT ANXIOUS, MEDICATED WITH 1MG ATIVAN IVP PER PRN ORDERS. WASTE WITH ABRAHAM SWEENEY. PT USED BEDSIDE COMMODE. MODERATE AMOUNT OF FORMED BROWN STOOL AND 250ML CLEAR YELLOW URINE. REPOSITIONED IN THE BED. ANXIETY/SOB WITH ACTIVITY. RT AWARE, SPOKE WITH PT. WILL CONTINUE TO CLOSELY MONITOR.
--- NOTE | 2021-09-27 12:05 | NUR ---
PT CONFUSED. SPEECH MUMBLED. PREVIOUSLY SPOKE IN LITHUANIAN WITH STAFF, ONLY SPEAKING WALLISIAN NOW. PT TRYING TO GET OUT OF BED. REORIENTED AND REPOSITIONED. ALL NEEDS MET AT THIS TIME. WILL CONTINUE TO CLOSELY MONITOR.
--- NOTE | 2021-09-27 12:50 | NUR ---
PT SLEEPING, RESPIRATIONS EVEN AND UNLABORED. MAP 67. AROUSABLE TO SHAKING.
--- NOTE | 2021-09-27 12:55 | NUR ---
SEEN AND EXAMINED BY DR LEAL.
--- NOTE | 2021-09-27 14:08 | NUR ---
09/27/21 RD INITIAL ASSESSMENT COMPLETED PLEASE REFER TO NUTRITION ASSESSMENT UNDER CARE ACTIVITY FOR ESTIMATED NUTRITIONAL NEEDS. 1. CONTINUE CCHO 60GM, CARDIAC DIET TOLERATED 2. CONTINUE GLUCERNA TID FOR NUTRITION SUPPORT 3. MONITOR PO INTAKE AND BLOOD GLUCOSE LEVELS 4. RD TO FOLLOW-UP 2-3 DAYS, HIGH RISK BRE [address]RB[address] RD
--- NOTE | 2021-09-27 14:30 | NUR ---
PT AWAKE, AAOX4. FOLLOWING COMMANDS.
--- NOTE | 2021-09-27 14:50 | NUR ---
RECEIVED ENDORSEMENT FROM ICU NURSE JOHNSON FOR CONTINUITY OF CARE.
--- NOTE | 2021-09-27 14:50 | NUR ---
ENDORSED REPORT TO [facility] NURSE VIA TELEPHONE FOR CONTINUITY OF CARE. ALL QUESTIONS ANSWERED AT THIS TIME. VSS, NO S/S ACUTE DISTRESS OR DISCOMFORT AT THIS TIME.
--- NOTE | 2021-09-27 15:15 | NUR ---
PT TAKEN VIA ICU BED TO TELE BED 120B W ASSIST FROM EMT. VSS, SR ON TRANSPORT MONITOR. SPO2 96%. NO S/S ACUTE DISTRESS.
--- NOTE | 2021-09-27 15:15 | NUR ---
PATIENT WHEELED BY ELIZABETH AND OTHER NURSE ON A GURNEY FROM ICU. PATIENT AWAKE ABLE TO RESPONDS. TRANSFER TO BED TOLERATED WELL. PATIENT WITH IV ON LEFT HAND TIAN 20 WITH MAGNESIUM INFUSING AT 25 CC/HOUR. PATIENT ON O2 VIA NASAL CANULA SATURATION AT 94%. PATIENT REFUSED TO LAY DOWN. PUT PILLOW ON HIS TABLE SO HE CAN REST HIS HEAD AND CHEST. NO COUGHING AT THIS TIME. REORIENTED TO ROOM, TV, CALL LIGHT, VISITING AND MEAL TIME.
--- NOTE | 2021-09-27 15:42 | NUR ---
PATIENT SEEN BY DR. MARIA.
--- NOTE | 2021-09-27 17:52 | NUR ---
PATIENT ASLEEP ON 2L/MIN IA NASAL CANULA. CALM AND NO DISTRESS. IV RUNNING AT 100 CC/HOURS OF NS. CALL LIGHT WITH IN EASY REACH. NO COUGHING OR CONGESTION NOTED.
--- NOTE | 2021-09-27 19:38 | NUR ---
GAVE REPORT TO FULL TIME NURSE FOR CONTINUITY OF CARE.
--- NOTE | 2021-09-27 19:39 | NUR ---
RECEIVED REPORT FROM AM NURSE. PATIENT IN BED AWAKE, ALERT X4. NO SOB NOTED. O2 AT 2L NC TOLERATING WELL. IVF NS INFUSING AT 100 ML/HR. PT HAS LEFT BKA. NO COMPLAINTS OF PAIN AT THIS TIME. ALL SAFETY MEASURES IN PLACE. CALL LIGHT WITHIN REACH. WILL CONTINUE TO MONITOR.
--- NOTE | 2021-09-27 21:20 | NUR ---
PATIENT PULLED OUT IV, STARTED A NEW PERIPHERAL IV ON THE LEFT FOREARM AND WRAPPED WITH GAUZE. PATIENT IN NO ACUTE DISTRESS. CALL LIGHT IN REACH. WILL CONTINUE TO MONITOR.
[2021-09-27] MEDS ORDERED: NACL 0.9% 1,000 ML IV ONE (21:30)
--- NOTE | 2021-09-27 21:30 | NUR ---
BP-88/60 P-[address] DAI WITH NEW ORDER OF NS BOLUS 1 LITER, NOTED AND CARRIED OUT.
[2021-09-27] MEDS ORDERED: MORPHINE SULFATE 2 MG/ML SYR IVP PRN (22:30)
--- NOTE | 2021-09-27 22:30 | NUR ---
AFTER 1 LITER NS BOLUS BP WENT UP TO 111/66 P-96. DR DAI MADE AWARE. PER DR DAI TO NOTIFY HIM IF BP GOES UP OR GOES DOWN AFTER THE BOLUS.
--- NOTE | 2021-09-27 22:39 | NUR ---
PATIENT COMPLAINED OF CHEST PAIN. PLACE A CALL TO DR. DAI WITH ORDERS, CARRIED OUT.
[2021-09-28] VITALS: BP 107/75
[2021-09-28] MEDS: LORazepam 2 MG/ML VIAL IVP PRN (01:04)
[2021-09-28 04:00] VITALS: BP 97/60
--- NOTE | 2021-09-28 04:44 | NUR ---
PATIENT KEEP TRYING TO GET OUT OF BED, PULLED IV X2. DR. DAI MADE AWARE WITH ORDER OF RESTRAINTS. BILATERAL SOFT WRIST RESTRAINT IN PLACE. CIRCULATION CHECKED. NO DISTRESS NOTED. WILL CONTINUE TO MONITOR.
[2021-09-28] MEDS: PIPERACILLIN/TAZOBACTAM 3.375 GM in DEXTROSE 5% 50 ML IV SCH ×3 (05:37→21:15)
--- NOTE | 2021-09-28 05:37 | NUR ---
ZOSYN IVPB ADMINISTERED PER MD ORDER.
[2021-09-28 05:39] LABS: BASOPHILS # (AUTO) 0.1 K/uL (0.00-0.22); BASOPHILS % (AUTO) 0.6 % (0.0-2.0); EOSINOPHILS # (AUTO) 0.1 K/uL (0-0.4); EOSINOPHILS % (AUTO) 0.7 % (0.0-4.0); HEMATOCRIT 34.6 % (36-52); HEMOGLOBIN 11.6 g/dL (12.0-18.0); LYMPHOCYTES # (AUTO) 1.8 K/uL (2.0-11.5); LYMPHOCYTES % (AUTO) 22.2 % (20.5-51.1); MEAN CORPUSCULAR HEMOGLOBIN 30 pg (27-31); MEAN CORPUSCULAR HGB CONC 33 g/dL (33-37); MEAN CORPUSCULAR VOLUME 89.3 fL (80-94); MONOCYTES # (AUTO) 0.5 K/uL (0.8-1.0); MONOCYTES % (AUTO) 6.6 % (1.7-9.3); NEUTROPHILS # (AUTO) 5.7 K/uL (1.8-7.7); NEUTROPHILS % (AUTO) 69.9 % (42.2-75.2); PLATELET COUNT (AUTO) 214 K/uL (140-450); RED BLOOD CELL COUNT(AUTO) 3.87 MIL/uL (4.20-6.10); RED CELL DISTRIBUTION WIDTH 15.9 % (11.6-13.7); WHITE BLOOD COUNT (AUTO) 8.1 K/uL (4.8-10.8)
[2021-09-28 06:22] LABS: ALBUMIN 2.7 g/dL (3.4-5.0); ANION GAP 12.4 (8-16); ASPARTATE AMINOTRANSFERASE 33 U/L (15-37); CARBON DIOXIDE 28.3 mmol/L (21-32); CHLORIDE 105 mmol/L (98-107); CREATININE 0.9 mg/dL (0.6-1.3); GLUCOSE 123 mg/dL (74-106); MAGNESIUM 2.1 mg/dL (1.8-2.4); POTASSIUM 3.7 mmol/L (3.5-5.1); SODIUM SERUM 142 mmol/L (136-145); TOTAL BILIRUBIN 0.5 mg/dL (0.0-1.0); UREA NITROGEN, BLOOD 14 mg/dL (7-18)
[2021-09-28] MEDS: BLOOD GLUCOSE MONITORING 1 DEV DEV FS SCH ×4 (06:30→21:25)
--- NOTE | 2021-09-28 06:30 | NUR ---
BLOOD SUGAR WAS 140 NO INSULIN COVERAGE NEEDED.
--- NOTE | 2021-09-28 07:30 | NUR ---
ENDORSED TO AM NURSE FOR CONTINUITY OF CARE. PT ON O2 AT 2L NC. IVF RUNNING AT 100 ML. PT STABLE.
--- NOTE | 2021-09-28 07:30 | NUR ---
RECEIVED REPORT FROM NIGHTSHIFT RN. PT ON CONTINUOUS BIPAP WITH 35% FIO2. PT ABLE TO NOD YES AND NO TO QUESTIONS. RT STATED PT DESATED TO 77% BEFORE THE START OF MY SHIFT. PT CURRENTLY @ 100% ON CONTINUOUS PULSE OX. HOB ELEVATED. RESTRAINTS OFF AT THIS TIME. BILATERAL UPPER EXTREMITIES WITH GOOD C/S/M. RFA #24 WITH NS@ 100 ML/HR. CONTACTED DR. LEAL REGARDING TROPONIN RESULTS. AKA NOTED. SKIN INTACT. NEEDS ALL MET AT THIS TIME. SAFETY MEASURES IN PLACE.
--- NOTE | 2021-09-28 07:32 | NUR ---
PT WAS FOUND IN RESTRAINTS WITHOUT NASAL CANNULA. PT LIPS APPEARED CYANOTIC, PT WAS SATING 77%. PLACED PATIENT ON BIPAP AT 35% AND PREVIOUS SETTINGS AND REMOVED RESTRAINTS. PT WAS LEFT SATING 100%. RN WAS NOTIFIED. WILL CONTINUE TO MONITOR.
[2021-09-28 08:00] VITALS: BP 103/71
[2021-09-28] MEDS ORDERED: LORazepam 1 MG TAB PO PRN (08:00)
[2021-09-28] MEDS: ENOXAPARIN 60 MG/0.6 ML SYR SUBQ SCH (09:22)
[2021-09-28] MEDS: ECOTRIN 81 MG TABEC PO SCH (09:24)
[2021-09-28] MEDS: methIMAzole 5 MG TAB PO SCH (09:24)
[2021-09-28] MEDS: EZETIMIBE 10 MG TAB PO SCH (09:25)
[2021-09-28] MEDS: CLOPIDOGREL 75 MG TAB PO SCH (09:25)
[2021-09-28] MEDS: FUROSEMIDE 40 MG/4 ML VIAL IVP SCH ×3 (09:25→21:25)
[2021-09-28] MEDS: NACL 0.9% 1,000 ML IV SCH (09:25)
[2021-09-28] MEDS: ATORVASTATIN 20 MG TAB PO SCH (09:25)
[2021-09-28] MEDS: VANCOMYCIN 1,000 MG in DEXTROSE 5% 250 ML IV SCH (09:26)
--- NOTE | 2021-09-28 09:33 | NUR ---
PT OFF BIPAP. PT DESAT TO 88%. DR. TREADWELL ROUNDED AND STATED TO TRANSFER TO ICU IF PT IS NOT TOLERATING BIPAP.
--- NOTE | 2021-09-28 09:35 | NUR ---
CHEST XRAY COMPLETED AT BEDSIDE.
[2021-09-28] MEDS: ALBUTEROL SULFATE/IPRATROPIU 3 ML SOL IH SCH ×4 (10:30→22:51)
--- NOTE | 2021-09-28 11:00 | NUR ---
CONTACTED MD REGARDING 1:1 SITTER. NEW ORDERS FOR 1:1 SITTER.
[2021-09-28] MEDS: INSULIN LISPRO SLIDING SCALE 100 UNITS/ML VIAL SUBQ PRN ×2 (11:17→16:08)
[2021-09-28 12:00] VITALS: BP 115/75
--- NOTE | 2021-09-28 14:00 | NUR ---
PT TRYING TO GET OUT OF BED. ASKED PT WHAT HE WANTED AND HE STATES, "SIT DOWN". POSITIONED PT IN SITTING POSITION WITH SIDE TABLE TO LEAN ON. CONTACTED RT AND THEY STATE TO TAKE OFF BIPAP AND THEY WILL BE THERE. BIPAP TAKEN OFF AND MONITORED PT WHILE DRINKING GLUCERNA. O2 SATURATION @ 95% RA. 1:1 SITTER AT BEDSIDE. PT TOLERATING ORAL FLUIDS WITH GOOD O2 SATURATION. SAFETY MEASURES IN PLACE.
--- NOTE | 2021-09-28 14:45 | NUR ---
RT COMPLETED AT BEDSIDE. PT ASLEEP, CHEST RISING AND FALLING, HOB ELEVATED. ON BIPAP FIO2 35%, RR 20, WITH O2 SAT @100%.
[2021-09-28 16:00] VITALS: BP 93/63
--- NOTE | 2021-09-28 18:40 | NUR ---
PT ASLEEP WITH BIPAP. CHEST RISING AND FALLING. ON BIPAP FIO2 @ 35%, RR 20. O2 SATURATION @ 100%. PT STABLE. SAFETY MEASURES IN PLACE.
--- NOTE | 2021-09-28 19:18 | NUR ---
REPORT GIVEN TO NIGHTSNVFT PATEL, MEHNAZ.
[2021-09-28 20:00] VITALS: BP 97/62
--- NOTE | 2021-09-28 21:30 | NUR ---
BLOOD SUGAR CHECKED = 140, NO INSULIN COVERAGE ON SLIDING SCALE.
--- NOTE | 2021-09-28 23:00 | NUR ---
PT ASLEEP WITH BIPAP, BIPAP FUNCTIONING WELL.
[2021-09-29] VITALS: BP 94/63
[2021-09-29] MEDS: ALBUTEROL SULFATE/IPRATROPIU 3 ML SOL IH SCH ×5 (03:10→23:00)
[2021-09-29 04:00] VITALS: BP 94/62
[2021-09-29] MEDS: PIPERACILLIN/TAZOBACTAM 3.375 GM in DEXTROSE 5% 50 ML IV SCH ×3 (04:42→20:04)
[2021-09-29] MEDS: FUROSEMIDE 40 MG/4 ML VIAL IVP SCH ×3 (04:55→21:00)
[2021-09-29 07:27] LABS: ANION GAP 14.5 (8-16); ASPARTATE AMINOTRANSFERASE 32 U/L (15-37); CARBON DIOXIDE 28.4 mmol/L (21-32); CHLORIDE 101 mmol/L (98-107); CREATININE 0.9 mg/dL (0.6-1.3); GLUCOSE 166 mg/dL (74-106); MAGNESIUM 1.8 mg/dL (1.8-2.4); SODIUM SERUM 141 mmol/L (136-145); TOTAL BILIRUBIN 0.7 mg/dL (0.0-1.0); UREA NITROGEN, BLOOD 11 mg/dL (7-18)
--- NOTE | 2021-09-29 07:30 | NUR ---
SBAR report received from Felicita SWEENEY, all cares assumed.
[2021-09-29 07:32] LABS: BASOPHILS % (AUTO) 0.8 % (0.0-2.0); EOSINOPHILS # (AUTO) 0.1 K/uL (0-0.4); EOSINOPHILS % (AUTO) 1.8 % (0.0-4.0); HEMATOCRIT 35.7 % (36-52); LYMPHOCYTES # (AUTO) 1.5 K/uL (2.0-11.5); LYMPHOCYTES % (AUTO) 31.9 % (20.5-51.1); MEAN CORPUSCULAR HEMOGLOBIN 30 pg (27-31); MEAN CORPUSCULAR HGB CONC 34 g/dL (33-37); MEAN CORPUSCULAR VOLUME 89.7 fL (80-94); MONOCYTES # (AUTO) 0.4 K/uL (0.8-1.0); MONOCYTES % (AUTO) 8.6 % (1.7-9.3); NEUTROPHILS # (AUTO) 2.7 K/uL (1.8-7.7); NEUTROPHILS % (AUTO) 56.9 % (42.2-75.2); PLATELET COUNT (AUTO) 203 K/uL (140-450); RED BLOOD CELL COUNT(AUTO) 3.98 MIL/uL (4.20-6.10); RED CELL DISTRIBUTION WIDTH 16.3 % (11.6-13.7); WHITE BLOOD COUNT (AUTO) 4.8 K/uL (4.8-10.8)
[2021-09-29 07:43] LABS: POTASSIUM 2.9 mmol/L (3.5-5.1)
[2021-09-29] MEDS: INSULIN LISPRO SLIDING SCALE 100 UNITS/ML VIAL SUBQ PRN ×3 (07:45→21:12)
--- NOTE | 2021-09-29 07:45 | NUR ---
CHECK BLOOD SUGAR = 161, 2 UNITS GIVEN AT 0745, PT TOLERATES WELL AND COOPERATIVE.
[2021-09-29 08:00] VITALS: BP 100/66
[2021-09-29] MEDS: BLOOD GLUCOSE MONITORING 1 DEV DEV FS SCH ×4 (08:00→20:54)
--- NOTE | 2021-09-29 08:00 | NUR ---
PT IS ON STABLE CONDITION AND COOPERATIVE AT THIS SHIFT. BIPAP FUNCTIONING WELL. PT SLEEP WELL. ENDORSED TO DAY SHIFT NURSE FOR CONTINUITY OF PT CARE.
[2021-09-29] MEDS: EZETIMIBE 10 MG TAB PO SCH (09:28)
[2021-09-29] MEDS: methIMAzole 5 MG TAB PO SCH (09:29)
[2021-09-29] MEDS: ATORVASTATIN 20 MG TAB PO SCH (09:29)
[2021-09-29] MEDS: ECOTRIN 81 MG TABEC PO SCH (09:29)
[2021-09-29] MEDS: CLOPIDOGREL 75 MG TAB PO SCH (09:29)
[2021-09-29] MEDS: ENOXAPARIN 40 MG/0.4 ML SYR SUBQ SCH (09:30)
[2021-09-29] MEDS: VANCOMYCIN 1,000 MG in DEXTROSE 5% 250 ML IV SCH (09:31)
--- NOTE | 2021-09-29 10:30 | NUR ---
SCREEN FOR LOW RADHA SCALE AT RISK, CONTINUE TO FOLLOW PRESSURE ULCER PREVENTION INTERVENTIONS. -TURN AND REPOSITION PATIENT Q 2H, ASSIST IF NEEDED -ASSESS AND MONITOR SKIN CONDITION DURING POSITION CHANGES -KEEP SKIN CLEAN AND DRY AT ALL TIMES.
[2021-09-29 12:00] VITALS: BP 101/56
[2021-09-29] MEDS: MIDODRINE 5 MG TAB PO SCH ×2 (14:07→19:41)
[2021-09-29 16:00] VITALS: BP 100/60
--- NOTE | 2021-09-29 19:41 | NUR ---
SBAR REPORT GIVEN TO ALENA SWEENEY, ALL CARES ENDORSED.
--- NOTE | 2021-09-29 19:45 | NUR ---
REPORT GIVEN BY TAO RN. RECEIVED PATIENT IN BED ASLEEP, EASILY AROUSABLE BY VERBAL STIMULI. DENIES PAIN AT THIS TIME. NO ACUTE RESPIRATORY DISTRESS, ON O2-2L NASAL CANNULA SAT 98%. SKIN WARM AND DRY TO TOUCH. BED IN THE LOWEST AND LOCKED POSITION FOR SAFETY, CALL LIGHT IN REACH. SITTER AT THE BEDSIDE FOR SAFETY. WILL CONTINUE TO MONITOR.
[2021-09-29 20:00] VITALS: BP 104/61
--- NOTE | 2021-09-29 21:10 | NUR ---
LASIX 40 MG IVP NOT GIVEN DUE TO BP 100/56.
--- NOTE | 2021-09-29 23:28 | NUR ---
PATIENT WITH EYES CLOSED, APPEARS TO BE ASLEEP. BREATHING EVEN AND UNLABORED. CALL LIGHT WITHIN REACH.
[2021-09-30] VITALS: BP 98/57
[2021-09-30] MEDS: ALBUTEROL SULFATE/IPRATROPIU 3 ML SOL IH SCH ×6 (03:00→23:19)
--- NOTE | 2021-09-30 03:15 | NUR ---
PATIENT RESTING COMFORTABLY IN BED. NO S/SX OF PAIN. CALL LIGHT WITHIN REACH.
[2021-09-30 04:00] VITALS: BP 102/62
[2021-09-30] MEDS: PIPERACILLIN/TAZOBACTAM 3.375 GM in DEXTROSE 5% 50 ML IV SCH ×3 (04:21→20:07)
[2021-09-30] MEDS: FUROSEMIDE 40 MG/4 ML VIAL IVP SCH ×2 (04:24→10:53)
--- NOTE | 2021-09-30 06:19 | NUR ---
PATIENT IS AWAKE. BS-149 MG/DL, NO S/SX OF HYPO/HYPERGLYCEMIA. NO DISTRESS NOTED. ALL NEEDS ATTENDED TO. SAFETY PRECAUTIONS MAINTAINED DURING THE SHIFT, SITTER AT THE BEDSIDE FOR SAFETY. CALL LIGHT WITHIN REACH. WILL ENDORSE CARE TO A RN.
[2021-09-30] MEDS: MIDODRINE 5 MG TAB PO SCH ×3 (06:31→18:49)
[2021-09-30] MEDS: BLOOD GLUCOSE MONITORING 1 DEV DEV FS SCH ×4 (06:31→20:08)
[2021-09-30 07:03] LABS: BASOPHILS % (AUTO) 0.9 % (0.0-2.0); EOSINOPHILS # (AUTO) 0.1 K/uL (0-0.4); EOSINOPHILS % (AUTO) 1.3 % (0.0-4.0); HEMOGLOBIN 11.7 g/dL (12.0-18.0); LYMPHOCYTES # (AUTO) 1.1 K/uL (2.0-11.5); LYMPHOCYTES % (AUTO) 21.3 % (20.5-51.1); MEAN CORPUSCULAR HEMOGLOBIN 30 pg (27-31); MEAN CORPUSCULAR HGB CONC 33 g/dL (33-37); MONOCYTES # (AUTO) 0.6 K/uL (0.8-1.0); MONOCYTES % (AUTO) 11.9 % (1.7-9.3); NEUTROPHILS # (AUTO) 3.3 K/uL (1.8-7.7); NEUTROPHILS % (AUTO) 64.6 % (42.2-75.2); PLATELET COUNT (AUTO) 181 K/uL (140-450); RED BLOOD CELL COUNT(AUTO) 3.93 MIL/uL (4.20-6.10); RED CELL DISTRIBUTION WIDTH 16.2 % (11.6-13.7); WHITE BLOOD COUNT (AUTO) 5.1 K/uL (4.8-10.8)
[2021-09-30 07:19] LABS: ALBUMIN 2.7 g/dL (3.4-5.0); ANION GAP 10.5 (8-16); ASPARTATE AMINOTRANSFERASE 29 U/L (15-37); CARBON DIOXIDE 30.5 mmol/L (21-32); CHLORIDE 101 mmol/L (98-107); CREATININE 1.6 mg/dL (0.6-1.3); GLUCOSE 141 mg/dL (74-106); MAGNESIUM 1.9 mg/dL (1.8-2.4); SODIUM SERUM 139 mmol/L (136-145); TOTAL BILIRUBIN 0.8 mg/dL (0.0-1.0); UREA NITROGEN, BLOOD 13 mg/dL (7-18)
--- NOTE | 2021-09-30 07:40 | NUR ---
RECEIVED PT FROM NIGHT RN, PT IS AWAKE AND ALERT AND ORIENTED, ON O2 2L NC, SIDE RAILS ARE UP AND CALL LIGHT WITHIN REACH, IV LINE NOTED ON THE LFA G. 20 ON SALINE LOCK, NO SIGN OF DISTRESS NOTED AND WILL CONTINUE TO MONITOR PT.
[2021-09-30 08:00] VITALS: BP 101/52
[2021-09-30] MEDS ORDERED: VANCOMYCIN 500 MG in DEXTROSE 5% 100 ML IV SCH (10:00)
[2021-09-30] MEDS: ECOTRIN 81 MG TABEC PO SCH (10:54)
--- NOTE | 2021-09-30 10:54 | NUR ---
PT WAS GIVEN AM MEDICATIONS NOW, TOLERATED.
[2021-09-30] MEDS: CLOPIDOGREL 75 MG TAB PO SCH (10:55)
[2021-09-30] MEDS: ATORVASTATIN 20 MG TAB PO SCH (10:55)
[2021-09-30] MEDS: methIMAzole 5 MG TAB PO SCH (10:55)
[2021-09-30] MEDS: ENOXAPARIN 40 MG/0.4 ML SYR SUBQ SCH (10:56)
[2021-09-30] MEDS: EZETIMIBE 10 MG TAB PO SCH (10:56)
[2021-09-30 12:00] VITALS: BP 107/62
--- NOTE | 2021-09-30 12:35 | NUR ---
PT WAS GIVEN IVPB ZOSYN NOW, PT IS IN THE COMMODE NOW HAVING A BM.
[2021-09-30] MEDS ORDERED: POTASSIUM CHLORIDE 40 MEQ, LIDOCAINE MPF 1% 25 MG in NACL 0.9% 250 ML IV ONE (13:35)
[2021-09-30] MEDS ORDERED: POTASSIUM CHLORIDE 40 MEQ, LIDOCAINE MPF 1% 25 MG in NACL 0.9% 250 ML IV SCH (14:00)
[2021-09-30] MEDS: INSULIN LISPRO SLIDING SCALE 100 UNITS/ML VIAL SUBQ PRN ×3 (14:17→20:08)
--- NOTE | 2021-09-30 15:25 | NUR ---
PT IS HAVING A BREATHING TREATMENT NOW.
--- NOTE | 2021-09-30 15:56 | NUR ---
09/30/21 RD FOLLOW UP COMPLETED. PLEASE REFER TO NUTRITION ASSESSMENT UNDER CARE ACTIVITY FOR ESTIMATED NUTRITIONAL NEEDS. 1. CONTINUE CCHO 60GM, CARDIAC DIET TOLERATED 2. MONITOR PO INTAKE AND BLOOD GLUCOSE LEVELS 3. RD TO FOLLOW-UP 2-3 DAYS, HIGH RISK ERIK HARTMAN, MARILY
[2021-09-30 16:00] VITALS: BP 104/56
--- NOTE | 2021-09-30 19:30 | NUR ---
RECEIVED REPORT FROM OUTGOING RN. PATIENT SITTING ON THE BED, AWAKE, ALERT AND ORIENTED. DENIES PAIN. NO RESPIRATORY DISTRESS NOTED AT THIS TIME. SKIN WARM AND DRY TO TOUCH. BED IN THE LOWEST AND LOCKED POSITION FOR SAFETY, CALL LIGHT WIHTIN REACH, BED ALARM ON. WILL CONTINUE TO MONITOR.
[2021-09-30 20:00] VITALS: BP 104/59
--- NOTE | 2021-09-30 20:01 | NUR ---
PT SITTING UP IN BED STABLE WITH NO SOB. PT ON 2L NC WITH 98% SPO2. BIPAP AT BEDSIDE. WILL CONTINUE TO MONITOR
[2021-09-30] MEDS: FUROSEMIDE 20 MG/2 ML VIAL IVP SCH (20:06)
--- NOTE | 2021-09-30 20:14 | NUR ---
BLOOD SUGAR-167 MG/DL, INSULIN GIVEN PER SLIDING [employer] COVERAGE ORDERED.
--- NOTE | 2021-09-30 22:21 | NUR ---
PATIENT CURRENTLY WATCHING ON HIS IPAD. OFFERED HS SNACK, BUT PATIENT REFUSED. CALL LIGHT WITHIN REACH, BED ALARM ON.
[2021-10-01 00:01] VITALS: BP 115/60
--- NOTE | 2021-10-01 00:16 | NUR ---
VITAL SIGNS STABLE. BREATHING EVEN AND UNLABORED. BED ALARM ON, SAFETY PRECAUTION IN PLACE. WILL MONITOR.
[2021-10-01] MEDS: ALBUTEROL SULFATE/IPRATROPIU 3 ML SOL IH SCH ×4 (02:52→15:12)
[2021-10-01 04:00] VITALS: BP 123/61
--- NOTE | 2021-10-01 04:20 | NUR ---
VITAL SIGNS STABLE. DENIES SHORTNESS OF BREATH. CALL LIGHT WITHIN REACH.
[2021-10-01] MEDS: PIPERACILLIN/TAZOBACTAM 3.375 GM in DEXTROSE 5% 50 ML IV SCH (05:36)
[2021-10-01] MEDS: BLOOD GLUCOSE MONITORING 1 DEV DEV FS SCH ×2 (06:07→11:56)
[2021-10-01] MEDS: MIDODRINE 5 MG TAB PO SCH ×2 (06:10→13:03)
--- NOTE | 2021-10-01 06:10 | NUR ---
CURRENT BP-125/68, MIDODRINE HELD. BLOOD SUGAR 115 MG/DL, NO S/SX OF HYPO/HYPERGLYCEMIA.
--- NOTE | 2021-10-01 06:37 | NUR ---
PATIENT IS AWAKE AT THIS TIME. DENIES PAIN, DENIES SHORTNESS OF BREATH. ALL NEEDS ATTENDED TO. SAFETY PRECAUTIONS MAINTAINED DURING THE SHIFT, BED ALARM ON, CALL LIGHT REMAINED WITHIN REACH. WILL ENDORSE CARE TO AM RN.
[2021-10-01 07:10] LABS: ALBUMIN 2.8 g/dL (3.4-5.0); ANION GAP 13.8 (8-16); ASPARTATE AMINOTRANSFERASE 31 U/L (15-37); CHLORIDE 100 mmol/L (98-107); CREATININE 1.6 mg/dL (0.6-1.3); GLUCOSE 104 mg/dL (74-106); MAGNESIUM 1.9 mg/dL (1.8-2.4); POTASSIUM 3.8 mmol/L (3.5-5.1); SODIUM SERUM 141 mmol/L (136-145); TOTAL BILIRUBIN 0.8 mg/dL (0.0-1.0); UREA NITROGEN, BLOOD 12 mg/dL (7-18)
[2021-10-01 07:21] LABS: BASOPHILS % (AUTO) 0.8 % (0.0-2.0); EOSINOPHILS # (AUTO) 0.1 K/uL (0-0.4); EOSINOPHILS % (AUTO) 2.5 % (0.0-4.0); HEMATOCRIT 36.1 % (36-52); HEMOGLOBIN 11.8 g/dL (12.0-18.0); LYMPHOCYTES # (AUTO) 1.1 K/uL (2.0-11.5); LYMPHOCYTES % (AUTO) 21.6 % (20.5-51.1); MEAN CORPUSCULAR HEMOGLOBIN 29 pg (27-31); MEAN CORPUSCULAR HGB CONC 33 g/dL (33-37); MEAN CORPUSCULAR VOLUME 88.8 fL (80-94); MONOCYTES # (AUTO) 0.5 K/uL (0.8-1.0); MONOCYTES % (AUTO) 9.8 % (1.7-9.3); NEUTROPHILS # (AUTO) 3.3 K/uL (1.8-7.7); NEUTROPHILS % (AUTO) 65.3 % (42.2-75.2); PLATELET COUNT (AUTO) 195 K/uL (140-450); RED BLOOD CELL COUNT(AUTO) 4.06 MIL/uL (4.20-6.10); RED CELL DISTRIBUTION WIDTH 16.7 % (11.6-13.7); WHITE BLOOD COUNT (AUTO) 5.1 K/uL (4.8-10.8)
--- NOTE | 2021-10-01 07:30 | NUR ---
RECEIVED BEDSIDE REPORT FROM GEODETIC TECHNICIAN NURSE, PT AWAKE ALERT ABLE TO LET NEEDS KNOWN, ON 2LPM O2 VIA NC, NO SOB NOTED, SATURATING @95%, IV TO LEFT FA 20G PATENT INTACT, SL. INITIAL ASSESSMENT DONE, ALL SAFETY PRECAUTION MET, CALL LIGHT WITHIN REACH, WILL CONTINUE TO MONITOR.
[2021-10-01 08:00] VITALS: BP 98/48
[2021-10-01] MEDS: FUROSEMIDE 20 MG/2 ML VIAL IVP SCH (08:51)
[2021-10-01] MEDS: ATORVASTATIN 20 MG TAB PO SCH (08:52)
[2021-10-01] MEDS: EZETIMIBE 10 MG TAB PO SCH (08:52)
[2021-10-01] MEDS: ECOTRIN 81 MG TABEC PO SCH (08:52)
[2021-10-01] MEDS: CLOPIDOGREL 75 MG TAB PO SCH (08:52)
[2021-10-01] MEDS: methIMAzole 5 MG TAB PO SCH (08:53)
[2021-10-01] MEDS: ENOXAPARIN 40 MG/0.4 ML SYR SUBQ SCH (08:53)
--- NOTE | 2021-10-01 08:56 | NUR ---
DUE MEDICATIONS ADMINISTERED, PT TOLERATED WELL, WILL CONTINUE TO MONITOR.
[2021-10-01] MEDS ORDERED: POTASSIUM CHLORIDE 20% 40 MEQ/15 ML UDC PO SCH (09:00)
[2021-10-01] MEDS ORDERED: VANCOMYCIN 500 MG in DEXTROSE 5% 100 ML IV SCH (10:00)
[2021-10-01] MEDS ORDERED: TAP5 PO (11:27)
[2021-10-01] MEDS ORDERED: EZET10TA50 PO (11:27)
[2021-10-01] MEDS ORDERED: LOV40I SUBQ (11:27)
[2021-10-01] MEDS ORDERED: PRO5 PO (11:27)
--- NOTE | 2021-10-01 11:30 | NUR ---
PT STATED UNABLE TO BREATH, ANXIOUS, ON 2LPM O2 VIA NC, O2 SATURATION 95%, RT CALLED, PT WAS PUT ON BIPAP, ATIVAN GIVEN, PT TOLERATED WELL, WILL CONTINUE TO MONITOR.
[2021-10-01 12:00] VITALS: BP 116/73
[2021-10-01] MEDS: INSULIN LISPRO SLIDING SCALE 100 UNITS/ML VIAL SUBQ PRN (12:12)
--- NOTE | 2021-10-01 12:45 | NUR ---
PT CALMED DOWN, PUT PT BACK ON 2LPM O2 VIA NC, PT TOLERATED WELL, SATURATING @95%
--- NOTE | 2021-10-01 13:01 | NUR ---
DUE MEDICATIONS ADMINISTERED, PT TOLERATED WELL, WILL CONTINUE TO MONITOR.
--- NOTE | 2021-10-01 14:30 | NUR ---
CALLED [facility] AND SPOKE TO NATTY, HE SAID SOMEONE WILL CALL US FOR TRANSPORT.
--- NOTE | 2021-10-01 15:09 | NUR ---
[facility] CALLED AND GAVE AUTH# [id number] FOR TRANSPORT, CALLED [phone] - NO ANSWER, LEFT MESSAGE [facility] [phone] - NO ANSWER HELPING [facility] [phone] AND GAVE ME A NUMBER FOR [facility] [phone], LEFT MESSAGE
--- NOTE | 2021-10-01 16:30 | NUR ---
DC PAPERS SIGNED, PT STATED UNDERSTANDING, ALL QUESTIONS ANSWERED. WILL CONTINUE TO MONITOR.
--- NOTE | 2021-10-01 16:34 | NUR ---
PT LEFT UNIT VIA WHEELCHAIR AND O2 NC 2LPM WITH BOAT CARPENTER IN STABLE CONDITION.
== END 2021-10-01 16:34 | disposition home or self-care (01) | DRG 871 ==
LOC: MED 13:48 → MTU 16:52 → MIC 18:10 → MTU 09-27 15:20
PROVIDERS: ADMIT Family Medicine; ATTEND Family Medicine
PROC: 5A09357 Assistance with Respiratory Ventilation, Less than 24 Consecutive Hours, Continuous Positive Airway Pressure (ICD-10-PCS; principal; 2021-09-26)
PROC: 5A09357 Assistance with Respiratory Ventilation, Less than 24 Consecutive Hours, Continuous Positive Airway Pressure (ICD-10-PCS; 2021-09-28)
PROC: 5A09357 Assistance with Respiratory Ventilation, Less than 24 Consecutive Hours, Continuous Positive Airway Pressure (ICD-10-PCS; 2021-09-29)
PROC: 5A09357 Assistance with Respiratory Ventilation, Less than 24 Consecutive Hours, Continuous Positive Airway Pressure (ICD-10-PCS; 2021-09-30)
DX: A41.9 Sepsis, unspecified organism (principal); I21.A1 Myocardial infarction type 2; I50.43 Acute on chronic combined systolic (congestive) and diastolic (congestive) heart failure; J18.9 Pneumonia, unspecified organism; J96.21 Acute and chronic respiratory failure with hypoxia; J44.0 Chronic obstructive pulmonary disease with (acute) lower respiratory infection; J44.1 Chronic obstructive pulmonary disease with (acute) exacerbation; I11.0 Hypertensive heart disease with heart failure; Z20.822 Contact with and (suspected) exposure to COVID-19; E11.51 Type 2 diabetes mellitus with diabetic peripheral angiopathy without gangrene; E78.5 Hyperlipidemia, unspecified; E05.90 Thyrotoxicosis, unspecified without thyrotoxic crisis or storm; N40.0 Benign prostatic hyperplasia without lower urinary tract symptoms; I35.0 Nonrheumatic aortic (valve) stenosis; I25.10 Atherosclerotic heart disease of native coronary artery without angina pectoris; Z95.5 Presence of coronary angioplasty implant and graft; Z95.2 Presence of prosthetic heart valve; Z88.8 Allergy status to other drugs, medicaments and biological substances; Z85.828 Personal history of other malignant neoplasm of skin; Z85.810 Personal history of malignant neoplasm of tongue; Z79.82 Long term (current) use of aspirin; Z79.899 Other long term (current) drug therapy
CPT/HCPCS: 36415; 36600; 71045; 80053; 80202; 81003; 82150; 82803; 82948; 83036; 83605; 83690; 83735; 83880; 84100; 84439; 84443; 84484; 85025; 85610; 85730; 87040; 87081; 93005; 94640; 94660; 96365; 96367; 96375; 99291; J1650; J1815; J1940; J2001; J2060; J2270; J2405; J2543; J2930; J3370; J3475; J3480; J3490; J7030; J7060; Q0092

== ENCOUNTER 2021-10-02 13:23 | Inpatient (IN) | payer OTHER ==
[~2021-10-02] VITALS: Ht 162.6 cm; Wt 42.6 kg
[~2021-10-02 13:23] MED LIST changes: -CEPH-588 PO; +EZET10TA50 PO; +LOV40I SUBQ; +PRO5 PO; +SLIDE SUBQ; +TAP5 PO
[2021-10-02 13:25] VITALS: BP 109/65
--- NOTE | 2021-10-02 13:30 | NUR ---
BIBA BLS TO ER BED 9
--- NOTE | 2021-10-02 13:38 | NUR ---
DR DE LA TORRE AT BEDSIDE EVALUATING PT
--- NOTE | 2021-10-02 13:46 | NUR ---
RT AT BEDSIDE FOR BIPAP
--- NOTE | 2021-10-02 13:49 | NUR ---
76 Y/O MALE BIBA FROM [facility] C/O SOB XLAST NIGHT. PT WAS D/C FROM HERE YESTERDAY AND STARTED HAVING SOB LAST NIGHT. PT REPORTS HE DIDNT SLEEP WELL LAST NIGHT. ON SCENE, SPO2 86% ON 2L. PT WAS PLACED ON FACEMASK 8-10L, SPO2 INCREASED TO 100%. PT THEN PLACED BACK ON N/C AT 4L- SPO2 96%. PT IS TRIPODING, INCREASED WORK OF BREATHING PT C/O BILATERAL RIB PAIN PT A/O X4. PT IN GOWN. ON EXTENDED INSURANCE CLERK. PMH:COPD, DM2, HDL, TONGUE CANCER ALLERGIES:METFORMIN
[2021-10-02] MEDS ORDERED: ALBUTEROL SULFATE/IPRATROPIU 3 ML SOL IH ONE ×3 (14:00→17:34)
--- NOTE | 2021-10-02 14:59 | NUR ---
Meagan ribeiro in [facility], [place] - 10/02/21 at 1459 by [email or web address] RAD AT BEDSIDE
--- NOTE | 2021-10-02 14:59 | NUR ---
LAB AT BEDSIDE FOR BLOOD DRAW
--- NOTE | 2021-10-02 15:06 | NUR ---
PT UNABLE TO PROVIDE URINE AT THIS TIME. URINAL AT BEDSIDE
[2021-10-02 15:24] LABS: BASOPHILS # (AUTO) 0.2 K/uL (0.00-0.22); BASOPHILS % (AUTO) 2.6 % (0.0-2.0); EOSINOPHILS # (AUTO) 0.1 K/uL (0-0.4); EOSINOPHILS % (AUTO) 2.2 % (0.0-4.0); HEMATOCRIT 39.9 % (36-52); HEMOGLOBIN 12.8 g/dL (12.0-18.0); LYMPHOCYTES % (AUTO) 16.6 % (20.5-51.1); MEAN CORPUSCULAR HEMOGLOBIN 29 pg (27-31); MEAN CORPUSCULAR HGB CONC 32 g/dL (33-37); MEAN CORPUSCULAR VOLUME 91.2 fL (80-94); MONOCYTES # (AUTO) 0.5 K/uL (0.8-1.0); NEUTROPHILS # (AUTO) 4.3 K/uL (1.8-7.7); NEUTROPHILS % (AUTO) 70.6 % (42.2-75.2); PLATELET COUNT (AUTO) 189 K/uL (140-450); RED BLOOD CELL COUNT(AUTO) 4.38 MIL/uL (4.20-6.10); WHITE BLOOD COUNT (AUTO) 6.1 K/uL (4.8-10.8)
--- NOTE | 2021-10-02 15:43 | NUR ---
PT PLACED ON 15L FACE MASK BY RT PER DR CORREA. PTS BP IS 95/48. DR CORREA MADE AWARE
[2021-10-02 16:04] LABS: ALBUMIN 3.1 g/dL (3.4-5.0); ANION GAP 14.4 (8-16); ASPARTATE AMINOTRANSFERASE 26 U/L (15-37); CARBON DIOXIDE 28.8 mmol/L (21-32); CHLORIDE 99 mmol/L (98-107); CREATININE 1.2 mg/dL (0.6-1.3); GLUCOSE 188 mg/dL (74-106); POTASSIUM 4.2 mmol/L (3.5-5.1); SODIUM SERUM 138 mmol/L (136-145); UREA NITROGEN, BLOOD 19 mg/dL (7-18)
[2021-10-02 16:05] LABS: LIPASE 37 U/L (73-393)
[2021-10-02] MEDS ORDERED: ACETAMINOPHEN 325 MG TAB PO PRN ×2 (16:40→16:45)
[2021-10-02] MEDS ORDERED: DOCUSATE SODIUM 100 MG GELCAP PO PRN (16:40)
[2021-10-02] MEDS ORDERED: POTASSIUM CHLORIDE 10 MEQ TABER PO PRN (16:40)
[2021-10-02] MEDS ORDERED: guaiFENesin DM 200/20 MG-10 ML 10 ML UDC PO PRN (16:40)
[2021-10-02] MEDS ORDERED: HYDROcodone/APAP 7.5/325 MG 1 TAB PO PRN (16:40)
--- NOTE | 2021-10-02 17:00 | NUR ---
CALLED LAB SPOKE TO KATIE FOR COVID BODY MECHANIC
[2021-10-02 17:57] LABS: PROTHROMBIN TIME 9.7 secs (10.8-13.4)
[2021-10-02 18:00] LABS: MAGNESIUM 1.9 mg/dL (1.8-2.4); PHOSPHORUS 3.5 mg/dL (2.5-4.9)
--- NOTE | 2021-10-02 19:12 | NUR ---
REPORT GIVEN TO PATEL VALVERDE. TRANSFER OF CARE AT THIS TIME
--- NOTE | 2021-10-02 19:13 | NUR ---
report received from xiang gomez. continuity of pt care at this time.
--- NOTE | 2021-10-02 19:17 | NUR ---
Pt sitting in bed locked in lowest posiition w x2 siderails up for pt safety. Pt awake and alert reports sob has improved, c/o ongoing BL rib pain (does not want pain medication), denies feeling congestion, no cough or other symptoms at this time. Pt on facemask 15L, connected to monitor. VS w/in normal limits. will continue to monitor. pt unable to provide urine at this time, will re-attempt. RT at bedside. Addendum: 10/02/21 at 1921 by [facility] Lung sounds clear on L, diminished on R.
--- NOTE | 2021-10-02 19:35 | NUR ---
NAHUMN UNABLE TO PROVIDE URINE AT THIS TIME. DRINKING WATER AT THIS TIME.
[2021-10-02 20:40] LABS: APPEARANCE,URINE CLEAR (CLEAR); BILIRUBIN,URINE 1+ (NEGATIVE); BLOOD, URINE TRACE-I (NEGATIVE); COLOR,URINE YELLOW (YELLOW); LEUKOCYTE ESTERASE ,URINE NEGATIVE (NEGATIVE); NITRITE, URINE NEGATIVE (NEGATIVE); UGLUCOSE NEGATIVE (NEGATIVE)
[2021-10-02 20:55] LABS: OTHER CASTS, URINE None Seen /LPF (None Seen); RBC,URINE 0-5 /HPF (0-5); WBC,URINE 0-5 /HPF (0-5)
[2021-10-02] MEDS ORDERED: DEXTROSE 50% 50 ML SYR IVP PRN (21:15)
[2021-10-02] MEDS: FUROSEMIDE 20 MG/2 ML VIAL IVP SCH (21:15)
--- NOTE | 2021-10-02 21:40 | NUR ---
PT BP 92/62 LASIX HELD AT THIS TIME.
--- NOTE | 2021-10-02 21:45 | NUR ---
Patient will be admitted to care of . Admited to TELE. Will go to room 110A. Belongings list completed. Report to LUKE.
--- NOTE | 2021-10-02 21:46 | NUR ---
PT TAKEN TO [facility] AT THIS TIME
[2021-10-02 21:50] VITALS: BP 113/52
--- NOTE | 2021-10-02 21:50 | NUR ---
GET THE REPORT FROM ER NURSE HENNY, PATIENT IS LYING ON BED, PATIENT IS RECEIVING OXYGEN 15 LITER VIA FACE MASK,NO ANY COMPLAIN OF PAIN AT THIS TIME ,CALL LIGHT IS WITHIN THE REACH,WILL CONTINUE TO MONITOR PATIENT.
[2021-10-02] MEDS ORDERED: AZITHROMYCIN 500 MG INJ VIAL IV ONE (22:57)
[2021-10-02] MEDS: AZITHROMYCIN 500 MG in DEXTROSE 5% 250 ML IV SCH (23:12)
[2021-10-03] VITALS: BP 103/64
--- NOTE | 2021-10-03 00:46 | NUR ---
PATIENT IS LYING ON BED, NO ANY COMPLAIN OF PAIN AT THIS TIME, VITAL SIGN IS WITHIN THE NORMAL RANGE, ALL SCHEDULE MEDICATION IS GIVEN PER DOCTOR ORDER, CALL LIGHT IS WITHIN THE REACH, WILL CONTINUE TO MONITOR PATIENT.
[2021-10-03 04:00] VITALS: BP 111/61
--- NOTE | 2021-10-03 04:18 | NUR ---
PATIENT IS LYING ON BED, VITAL SIGN IS WITHIN THE NORMAL RANGE, CALL LIGHT IS WITHIN THE REACH,WILL CONTINUE TO MONITOR PATIENT.
[2021-10-03] MEDS: methylPREDNISolone SS 40 MG/ML VIAL IVP SCH ×3 (04:34→20:41)
[2021-10-03] MEDS: MIDODRINE 5 MG TAB PO SCH ×3 (06:14→20:41)
--- NOTE | 2021-10-03 06:21 | NUR ---
PATIENT IS LYING ON BED, NO ANY COMPLAIN OF PAIN , WILL CONTINUE TO MONITOR PATIENT.
[2021-10-03] MEDS: BLOOD GLUCOSE MONITORING 1 DEV DEV FS SCH ×4 (06:32→21:00)
[2021-10-03] MEDS: INSULIN LISPRO SLIDING SCALE 100 UNITS/ML VIAL SUBQ PRN ×2 (06:33→17:19)
[2021-10-03 07:12] LABS: BASOPHILS % (AUTO) 0.4 % (0.0-2.0); EOSINOPHILS # (AUTO) 0.1 K/uL (0-0.4); EOSINOPHILS % (AUTO) 2.2 % (0.0-4.0); HEMATOCRIT 38.4 % (36-52); HEMOGLOBIN 12.6 g/dL (12.0-18.0); LYMPHOCYTES # (AUTO) 0.9 K/uL (2.0-11.5); LYMPHOCYTES % (AUTO) 17.5 % (20.5-51.1); MEAN CORPUSCULAR HEMOGLOBIN 30 pg (27-31); MEAN CORPUSCULAR HGB CONC 33 g/dL (33-37); MEAN CORPUSCULAR VOLUME 89.7 fL (80-94); MONOCYTES # (AUTO) 0.3 K/uL (0.8-1.0); MONOCYTES % (AUTO) 4.9 % (1.7-9.3); NEUTROPHILS # (AUTO) 4.1 K/uL (1.8-7.7); PLATELET COUNT (AUTO) 182 K/uL (140-450); RED BLOOD CELL COUNT(AUTO) 4.28 MIL/uL (4.20-6.10); RED CELL DISTRIBUTION WIDTH 16.5 % (11.6-13.7); WHITE BLOOD COUNT (AUTO) 5.4 K/uL (4.8-10.8)
[2021-10-03 07:18] LABS: ANION GAP 14.4 (8-16); CARBON DIOXIDE 29.6 mmol/L (21-32); CHLORIDE 97 mmol/L (98-107); GLUCOSE 209 mg/dL (74-106); SODIUM SERUM 137 mmol/L (136-145); UREA NITROGEN, BLOOD 17 mg/dL (7-18)
--- NOTE | 2021-10-03 07:20 | NUR ---
GAVE THE REPORT TO MORNING NURSE WENCESLAO FOR CONTINUOUS OF CARE, PATIENT IS STABLE.
--- NOTE | 2021-10-03 07:20 | NUR ---
RECEIVED REPORT FROM CHEMICAL OPERATIONS SPECIALIST NURSE: PATIENT IN BED AWAKE & ALERT. BREATHING EFFORTLESSLY WITH O2 AT 15L VIA FACE MASK. IV ACCESS WITH 22G CATH, SALINE LOCKED, INTACT AT LEFT HAND. CONDOM CATHETER NOT DRAINING URINE--PER REPORT NO OUTPUT SINCE PATIENT IS "AFRAID" TO VOID. WILL CONTINUE TO MONITOR. PLAN OF CARE TO CONTINUE AND SAFETY MAINTAINED.
[2021-10-03 08:00] VITALS: BP 111/62
--- NOTE | 2021-10-03 08:51 | NUR ---
PATIENT HAS BEEN SCREENED AND CATEGORIZED HIGH NUTRITION RISK. PATIENT WILL BE SEEN WITHIN 1-2 DAYS OF ADMISSION. /10/[address]
[2021-10-03] MEDS ORDERED: CLOPIDOGREL 75 MG TAB PO SCH (09:00)
[2021-10-03] MEDS ORDERED: ENOXAPARIN 40 MG/0.4 ML SYR SUBQ SCH (09:00)
[2021-10-03] MEDS ORDERED: ASPIRIN 81 MG TAB.CHEW PO SCH (09:00)
[2021-10-03] MEDS: FUROSEMIDE 20 MG/2 ML VIAL IVP SCH (09:33)
[2021-10-03] MEDS: ATORVASTATIN 20 MG TAB PO SCH (09:34)
[2021-10-03] MEDS: EZETIMIBE 10 MG TAB PO SCH (09:36)
[2021-10-03] MEDS: methIMAzole 5 MG TAB PO SCH (09:36)
--- NOTE | 2021-10-03 09:50 | NUR ---
ALL AM MEDS ADMIN ORDERED. PT DENIES PAIN AND REPORTS NAUSEA BUT REFUSED ZOFRAN ORDERED. PT REQUESTS LEMON & DIET 7-UP OR OTHER SODA--SAME REQUESTED FROM [facility].
--- NOTE | 2021-10-03 10:20 | NUR ---
PT WITH CONDOM CATHETER AND VERBALIZES WANTING TO REMOVE CATHETER AND PREFERS URINAL. CONDOM CATHETER REMOVED AND PROVIDED PT WITH URINAL
--- NOTE | 2021-10-03 11:48 | NUR ---
PT GAVE RN LIST OF PEOPLE HE ALLOWS TO RELEASE MEDICAL INFORMATION TO. ADMITTING MADE AWARE AND STATED WILL AWARE CM WELL.
[2021-10-03 12:00] VITALS: BP 107/55
--- NOTE | 2021-10-03 14:30 | NUR ---
SPOKE WITH GAGAN FROM RADIOLOGY, PT FOR CT GUIDED CHEST TUBE INSERTION. MD WILL OBTAIN CONSENT
--- NOTE | 2021-10-03 15:05 | NUR ---
PT TAKEN TO RADIOLOGY, ON O2 VIA FACE MASK AT 15L SATING AT 100%
--- NOTE | 2021-10-03 16:30 | NUR ---
PT CAME BACK FROM RADIOLOGY S/P CHEST TUBE INSERTION. PT AWAKE, ALERT. ABLE TO MAKE NEEDS KNOWN. ON O2 15L VIA FACE MASK.
--- NOTE | 2021-10-03 16:30 | NUR ---
MONITORED PATIENT IN CT FOR CHEST TUBE INSERTION. FENTANYL 100MCG GIVEN. PATIENT TOLERATED WELL. SAO2 100% ON FACE MASK. TRANSPORTED PATIENT BACK TO 110A. CONNECTED CT TO -20CM SUCTION. HANDOFF GIVEN TO PATEL KINCAID.
--- NOTE | 2021-10-03 16:39 | NUR ---
DC PLANNING: PATIENT HAS AN ORDER TO TRANSFER TO HIGHER LEVEL OF CARE FOR REDOING THE AORTIC VALVE REPLACEMENT. PATIENT STATED THE SURGERY WAS DONE AT [facility]. FAXED THE REQUEST TO [facility]. CM TO FOLLOW Addendum: 10/03/21 at 1730 by Brianda Oscar RN DC PLANNING: [facility] SPOKE WITH [facility] PROVIDE ALL THE INFO AND CLINICALS AND DR LEAL'S CELL PHONE FOR PEER TO PEER. PER NESS NEEDS PCR COVID TEST, NOTIFIED SHONA CHARGE NURSE WHEN ITS READY TO FAX THE PCR TO [phone] ALSO PROVIDE [facility]'S NUMBER TO FOLLOW UP. CM TO FOLLOW Addendum: 10/04/21 at 0913 by Brianda Oscar RN DC PLANNING: [facility] SPOKE WITH KALIN SWEENEY UPDATED PT'S CLINICAL, PER KALIN THE CASE IS STILL ON REVIEW. CM TO FOLLOW Addendum: 10/04/21 at 1200 by Brianda Oscar RN DC PLANNING: RECEIVED A CALL FROM [facility] SPOKE WITH KALIN STATED DR [facility] IS ACCEPTING PATIENT AND AWAITING FOR BED. CALLED [facility] SPOKE WITH MAIN BILLY APPROVED FOR TRANSFER AND PROVIDE THE AUTH # [id number] FOR TRANSPORT. ARRANGED TRANSPORT WITH [facility] IT WILL CALL. CM TO FOLLOW Addendum: 10/04/21 at 1554 by Brianda Oscar RN DC PLANNING: CALLED [facility] SPOKE WITH LINNETTE TOMLINSON STILL AWAITING FOR BED, MIGHT HAVE A DISCHARGE TONIGHT AND WILL CALL BACK. CM TO FOLLOW Addendum: 10/05/21 at 0910 by Brianda Oscar RN DC PLANNING: CALLED [facility] SPOKE WITH KELLEY TOMLINSON STILL AWAITING FOR BED. CM TO FOLLOW
--- NOTE | 2021-10-03 16:55 | NUR ---
CALLED BY PT, NOTED PT COUGHING UP BRIGHT RED BLOOD MIXED WITH SOME SALIVA. DR MELCHOR MADE AWARE, ORDERED CT ANGIO CHEST AND CXR STAT.
[2021-10-03] MEDS ORDERED: LIDOCAINE 1% 500 MG/50 ML VIAL INJ SCH (17:25)
--- NOTE | 2021-10-03 17:25 | NUR ---
SPOKE WITH ARISTEO FROM CT DEPT STATED PT NEEDS AN IV LINE WITH 20G OR BIGGER BY ANTECUBITAL FOR THE CT ANGIO CHEST. PT CURRENTLY HAS 22G ON LEFT HAND, WILL INSERT ANOTHER IV LINE
[2021-10-03] MEDS: ONDANSETRON 4 MG/2 ML VIAL IM/IVP PRN (17:38)
[2021-10-03] MEDS: FUROSEMIDE 40 MG/4 ML VIAL IVP SCH (17:51)
--- NOTE | 2021-10-03 17:51 | NUR ---
PT'S BP 146/60, LASIX GIVEN ORDERED. PT STILL NOTED WITH INTERMITTENT EPISODES OF COUGHING UP BRIGHT RED BLOOD.
[2021-10-03 18:05] LABS: BASOPHILS % (AUTO) 0.4 % (0.0-2.0); HEMATOCRIT 38.9 % (36-52); HEMOGLOBIN 12.8 g/dL (12.0-18.0); LYMPHOCYTES # (AUTO) 0.8 K/uL (2.0-11.5); LYMPHOCYTES % (AUTO) 16.6 % (20.5-51.1); MEAN CORPUSCULAR HEMOGLOBIN 30 pg (27-31); MEAN CORPUSCULAR HGB CONC 33 g/dL (33-37); MEAN CORPUSCULAR VOLUME 90.4 fL (80-94); MONOCYTES # (AUTO) 0.1 K/uL (0.8-1.0); MONOCYTES % (AUTO) 1.3 % (1.7-9.3); NEUTROPHILS # (AUTO) 3.9 K/uL (1.8-7.7); NEUTROPHILS % (AUTO) 81.7 % (42.2-75.2); PLATELET COUNT (AUTO) 183 K/uL (140-450); WHITE BLOOD COUNT (AUTO) 4.8 K/uL (4.8-10.8)
--- NOTE | 2021-10-03 18:20 | NUR ---
INSERTED ANOTHER IV LINE ON RAC20G WITH ASSISTANCE FROM ANOTHER RN. CALLED ARISTEO FROM CT DEPARTMENT AND MADE AWARE.
[2021-10-03 18:29] LABS: CARBON DIOXIDE 30.5 mmol/L (21-32); CHLORIDE 96 mmol/L (98-107); CREATININE 1.3 mg/dL (0.6-1.3); GLUCOSE 202 mg/dL (74-106); POTASSIUM 4.5 mmol/L (3.5-5.1); SODIUM SERUM 138 mmol/L (136-145); UREA NITROGEN, BLOOD 24 mg/dL (7-18)
--- NOTE | 2021-10-03 18:30 | NUR ---
DR MELCHOR WITH ORDER TO TRANSFER PT TO ICU. PT AWARE.
--- NOTE | 2021-10-03 19:00 | NUR ---
PASSED BY CT DEPT FOR PT'S CT ANGIO CHEST THEN TRANSFERRED PT TO ICU, BEDSIDE REPORT GIVEN TO PATEL CAUSEY. PT STILL NOTED COUGHING UP BRIGHT RED BLOOD.
--- NOTE | 2021-10-03 19:15 | NUR ---
RECEIVED TRANSFER FROM [facility]. RECEIVED REPORT FROM PATEL KINCAID. PATIENT ALERT AND ANSWERS QUESTION. MOVES ALL EXTREMITIES. FACE MASK ON WITH SAO2 97%. RIGHT CHEST TUBE IN PLACE TO -20CM SUCTION WITH INTERMITTENT AIR LEAK. REPORT GIVEN TO TELEPHONE SALES REPRESENTATIVE REGISTERY RN.
[2021-10-03] MEDS: MIRTAZAPINE 15 MG TAB PO SCH (20:42)
[2021-10-03 21:00] VITALS: BP 95/35
[2021-10-03] MEDS: INSULIN LANTUS 100 UNITS/ML 10 ML VIAL SUBQ SCH (21:00)
[2021-10-03] MEDS: AZITHROMYCIN 500 MG in DEXTROSE 5% 250 ML IV SCH (21:35)
[2021-10-03] MEDS ORDERED: ALBUTEROL SULFATE/IPRATROPIU 3 ML SOL IH ONE (21:42)
--- NOTE | 2021-10-03 21:45 | NUR ---
CALLED TO [facility] DUE TO PT C/O SOB. AT BEDSIDE PT C/O OF SOB. BEATH SOUNDS CLEAR. SPO2 99%. PRN TX WELL ORDERED, MED WAS OVERRIDE AND GIVEN FOR SOB. WILL CONTINUE TO MONITOR PT.
[2021-10-03] MEDS: ALBUTEROL SULFATE/IPRATROPIU 3 ML SOL IH PRN (21:58)
[2021-10-03 22:00] VITALS: BP 106/66
[2021-10-03] MEDS: ZOLPIDEM 5 MG TAB PO PRN (23:29)
[2021-10-04] VITALS (16 sets, daily range): BP systolic 90–122; BP diastolic 31–72
--- NOTE | 2021-10-04 00:10 | NUR ---
PATIENT AWAKE ALERT LYING IN BED WITH 10 LITER MASK ON SAT 98% SINUS ON MONITOR LUNGS DIMINISH TO LISTEN HAS HL BOTH ARMS 20 GA IN RIGHT MID ARM. IN LEFT HAND 22 GA. TEMP 97 AUX. PATIENT BLOOD SUGAR 2100 152 GIVEN 2 UNITS OF HUMALOG, LANTUS 10 UNITS S.Q. PATIENT GIVEN AMBIEN 5MG PO. AT 2330 NO DISTRESS NOTED.
[2021-10-04] MEDS: methylPREDNISolone SS 40 MG/ML VIAL IVP SCH ×3 (05:00→21:00)
[2021-10-04 06:53] LABS: ANION GAP 14.9 (8-16); CARBON DIOXIDE 30.1 mmol/L (21-32); CHLORIDE 97 mmol/L (98-107); CREATININE 1.2 mg/dL (0.6-1.3); GLUCOSE 183 mg/dL (74-106); SODIUM SERUM 138 mmol/L (136-145); UREA NITROGEN, BLOOD 29 mg/dL (7-18)
[2021-10-04] MEDS: BLOOD GLUCOSE MONITORING 1 DEV DEV FS SCH ×4 (06:59→21:00)
[2021-10-04] MEDS: MIDODRINE 5 MG TAB PO SCH ×3 (06:59→20:00)
[2021-10-04] MEDS: INSULIN LISPRO SLIDING SCALE 100 UNITS/ML VIAL SUBQ PRN ×2 (07:00→17:35)
[2021-10-04] MEDS: FUROSEMIDE 40 MG/4 ML VIAL IVP SCH ×2 (09:00→17:31)
[2021-10-04] MEDS: EZETIMIBE 10 MG TAB PO SCH (09:00)
[2021-10-04] MEDS: ATORVASTATIN 20 MG TAB PO SCH (09:00)
[2021-10-04] MEDS: methIMAzole 5 MG TAB PO SCH (09:00)
--- NOTE | 2021-10-04 09:20 | NUR ---
PT TAKEN OFF SIMPLE MASK OF 8L AND CHANGED OVER TO A NASAL CANNULA ON 3L. PT IS STILL SATING WELL AT 93%-95%. WILL CONTINUE TO MONITOR AND TITRATE IF NEEDED.
[2021-10-04 12:10] LABS: BASOPHILS # (AUTO) 0.1 K/uL (0.00-0.22); BASOPHILS % (AUTO) 1.3 % (0.0-2.0); EOSINOPHILS # (AUTO) 0.1 K/uL (0-0.4); EOSINOPHILS % (AUTO) 1.7 % (0.0-4.0); HEMATOCRIT 31.7 % (36-52); HEMOGLOBIN 10.7 g/dL (12.0-18.0); LYMPHOCYTES # (AUTO) 0.7 K/uL (2.0-11.5); LYMPHOCYTES % (AUTO) 11.9 % (20.5-51.1); MEAN CORPUSCULAR HEMOGLOBIN 30 pg (27-31); MEAN CORPUSCULAR HGB CONC 34 g/dL (33-37); MEAN CORPUSCULAR VOLUME 89.4 fL (80-94); MONOCYTES # (AUTO) 0.1 K/uL (0.8-1.0); MONOCYTES % (AUTO) 1.7 % (1.7-9.3); NEUTROPHILS # (AUTO) 5.2 K/uL (1.8-7.7); NEUTROPHILS % (AUTO) 83.4 % (42.2-75.2); PLATELET COUNT (AUTO) 201 K/uL (140-450); RED BLOOD CELL COUNT(AUTO) 3.55 MIL/uL (4.20-6.10); RED CELL DISTRIBUTION WIDTH 16.2 % (11.6-13.7); WHITE BLOOD COUNT (AUTO) 6.2 K/uL (4.8-10.8)
--- NOTE | 2021-10-04 16:35 | NUR ---
10/04/21 RD INITIAL ASSESSMENT COMPLETED PLEASE REFER TO NUTRITION ASSESSMENT UNDER CARE ACTIVITY FOR ESTIMATED NUTRITIONAL NEEDS. 1. CONTINUE [facility] 45GM DIET TOLERATED 2. RECOMMEND GLUCERNA BID PER RD PROTOCOL 3. MONITOR PO INTAKE 4. RD TO FOLLOW-UP 2-3 DAYS, HIGH RISK BRE [address]
[2021-10-04] MEDS: INSULIN LANTUS 100 UNITS/ML 10 ML VIAL SUBQ SCH (21:00)
[2021-10-04] MEDS: MIRTAZAPINE 15 MG TAB PO SCH (21:00)
[2021-10-04] MEDS: AZITHROMYCIN 500 MG in DEXTROSE 5% 250 ML IV SCH (21:35)
[2021-10-04] MEDS: ZOLPIDEM 5 MG TAB PO PRN (22:30)
[2021-10-04] MEDS: ONDANSETRON 4 MG/2 ML VIAL IM/IVP PRN (23:04)
--- NOTE | 2021-10-04 23:45 | NUR ---
PATIENT AWAKE WITH 02ON 3LITERS SAT 97% ON MONITOR SINUS BLOOD SUGAR 2100 127 ONLY GIVEN 10 UNITS OF LANTUS S.Q..CHEST TUBE STILL DRANING TONNY COLOR DRAIN.PATIENT C/O OF GENERAL PAIN GIVEN NORCO, AMBIEN 5MG 10 MIN AFTER TAKING MEDICINE PATIENT EMESIS THEN GAVE PATIENT ZOFRAN 4 MG IVP. PATIENT RESTING BETTER AT 0000.
[2021-10-05] VITALS (14 sets, daily range): BP systolic 78–144; BP diastolic 16–84
[2021-10-05] MEDS: methylPREDNISolone SS 40 MG/ML VIAL IVP SCH ×2 (05:00→12:37)
[2021-10-05 05:39] LABS: ANION GAP 12.8 (8-16); CARBON DIOXIDE 31.9 mmol/L (21-32); CHLORIDE 97 mmol/L (98-107); CREATININE 1.3 mg/dL (0.6-1.3); GLUCOSE 197 mg/dL (74-106); POTASSIUM 3.7 mmol/L (3.5-5.1); SODIUM SERUM 138 mmol/L (136-145); UREA NITROGEN, BLOOD 35 mg/dL (7-18)
[2021-10-05] MEDS: BLOOD GLUCOSE MONITORING 1 DEV DEV FS SCH ×4 (06:34→21:07)
[2021-10-05] MEDS: MIDODRINE 5 MG TAB PO SCH ×3 (06:34→18:09)
[2021-10-05] MEDS: INSULIN LISPRO SLIDING SCALE 100 UNITS/ML VIAL SUBQ PRN ×4 (06:36→21:16)
--- NOTE | 2021-10-05 07:30 | NUR ---
Patient drowsy, arousable, on 2L O2 via nasal cannula. Pt states no pain at this time. IV saline lock sites intact, patent. Right side chest tube to suction, no leaks noted.
[2021-10-05 08:26] LABS: BASOPHILS % (AUTO) 0.4 % (0.0-2.0); EOSINOPHILS % (AUTO) 0.7 % (0.0-4.0); HEMATOCRIT 29.7 % (36-52); HEMOGLOBIN 10.5 g/dL (12.0-18.0); LYMPHOCYTES # (AUTO) 0.7 K/uL (2.0-11.5); LYMPHOCYTES % (AUTO) 10.4 % (20.5-51.1); MEAN CORPUSCULAR HEMOGLOBIN 32 pg (27-31); MEAN CORPUSCULAR HGB CONC 35 g/dL (33-37); MEAN CORPUSCULAR VOLUME 89.4 fL (80-94); MONOCYTES # (AUTO) 0.1 K/uL (0.8-1.0); MONOCYTES % (AUTO) 1.3 % (1.7-9.3); NEUTROPHILS % (AUTO) 87.2 % (42.2-75.2); PLATELET COUNT (AUTO) 213 K/uL (140-450); RED BLOOD CELL COUNT(AUTO) 3.32 MIL/uL (4.20-6.10); RED CELL DISTRIBUTION WIDTH 16.1 % (11.6-13.7); WHITE BLOOD COUNT (AUTO) 6.9 K/uL (4.8-10.8)
[2021-10-05] MEDS: FUROSEMIDE 40 MG/4 ML VIAL IVP SCH ×2 (09:00→18:09)
[2021-10-05] MEDS: ATORVASTATIN 20 MG TAB PO SCH (09:09)
[2021-10-05] MEDS: EZETIMIBE 10 MG TAB PO SCH (09:09)
[2021-10-05] MEDS: methIMAzole 5 MG TAB PO SCH (09:21)
--- NOTE | 2021-10-05 10:40 | NUR ---
Updates given to pt's son Tony regarding plan of care
[2021-10-05] MEDS: ONDANSETRON 4 MG/2 ML VIAL IM/IVP PRN (12:43)
--- NOTE | 2021-10-05 16:00 | NUR ---
Endorsed plan of care to Radha SWEENEY. Pt transfer to tele 123A able to transfer to bed with minimal assist. Chest tube intact, no leaks noted. Pt transfer with continuous O2. All belongings sent with patient.
--- NOTE | 2021-10-05 16:18 | NUR ---
PATIENT ARRIVED IN UNIT, RECEIVED REPORT FROM JACKELINE SWEENEY FOR CONTINUOUS OF CARE. PT AWAKE ALERT, ABLE TO LET NEEDS KNOWN. IV TO RIGHT AC 20G AND LEFT HAND 22G PATENT INTACT, SL. PT ON 2LPM O2 VIA NC, NO SOB NOTED, RIGHT CHEST TUBE IN PLACE WITH CONTINUOUS LOW SUCTION. INITIAL ASSESSMENT DONE, ALL SAFETY PRECAUTION MET, CALL LIGHT WITHIN REACH, WILL CONTINUE TO MONITOR.
--- NOTE | 2021-10-05 17:57 | NUR ---
TRANSFER OF CARE FROM CHARGE NURSE, SHONA. PT A/O X4. ABLE TO MAKE NEEDS KNOWN. ORAL FLUIDS PROVIDED. ON 2L NC. RR EVEN & UNLABORED. RIGHT UPPER CHEST NOTED WITH PORT WITH DRESSING C/D/I. DENIES PAIN AT THIS TIME. CARDIAC DIET. R CHEST TUBE IN PLACE WITH CONTINUOUS LOW SUCTION. IV ON RAC #20 AND LH #22. L BKA. ITEMS AND CALL LIGHT WITHIN REACH. NEEDS ALL MET AT THIS TIME. SAFETY MEASURES IN PLACE.
--- NOTE | 2021-10-05 19:29 | NUR ---
REPORT GIVEN TO PATEL TOLEDO.
[2021-10-05] MEDS: MIRTAZAPINE 15 MG TAB PO SCH (21:08)
[2021-10-05] MEDS: INSULIN LANTUS 100 UNITS/ML 10 ML VIAL SUBQ SCH (21:11)
--- NOTE | 2021-10-05 21:17 | NUR ---
ADMINISTERED 2100 MEDICATIONS. PATIENT TOLERATED WELL. PATIENT WAS SITTING UP IN BED. PATIENT WAS GIVEN A NEW EMESIS BAG FOR COUGHING UP SPUTUM. NO IVF RUNNING. PATIENT BED IS IN LOWEST POSITION WITH WHEELS LOCKED. PATIENT AVOIDS SPEAKING BECAUSE IT EXERTS HIM. WILL CONTINUE TO MONITOR. BS 167; GAVE 2 UNITS.
[2021-10-05] MEDS ORDERED: AZITHROMYCIN 500 MG INJ VIAL IV ONE (21:24)
[2021-10-05] MEDS: AZITHROMYCIN 500 MG in DEXTROSE 5% 250 ML IV SCH (21:49)
[2021-10-05] MEDS: ALBUTEROL SULFATE/IPRATROPIU 3 ML SOL IH PRN (23:25)
--- NOTE | 2021-10-05 23:47 | NUR ---
2330 GAVE PATIENT HHNTX AND PLACED PATIENT ON 6LFM
[2021-10-06] VITALS: BP 110/64
--- NOTE | 2021-10-06 | NUR ---
LOOKED IN ON PATIENT. PATIENT WAS SLEEPING IN HIGH FOWLERS POSITION WITH 6L FLOWING. WILL CONTINUE TO MONITOR.
[2021-10-06 03:29] VITALS: BP 110/64
[2021-10-06 04:00] VITALS: BP 106/59
--- NOTE | 2021-10-06 05:00 | NUR ---
PT TRANSPORTED TO [facility]. PT IS STABLE.
[2021-10-06] MEDS ORDERED: methylPREDNISolone SS 40 MG/ML VIAL IVP SCH (09:00)
== END 2021-10-06 08:32 | disposition short-term general hospital (02) | DRG 280 ==
LOC: MED 13:23 → MTU 16:37 → MED 16:40 → MTU 18:43 → MIC 10-03 18:50 → MTU 10-05 16:00
PROVIDERS: ADMIT Student in an Organized Health Care Education/Training Program; ATTEND Student in an Organized Health Care Education/Training Program
PROC: 0W9930Z Drainage of Right Pleural Cavity with Drainage Device, Percutaneous Approach (ICD-10-PCS; principal; 2021-10-04)
DX: I11.0 Hypertensive heart disease with heart failure (principal); I21.A1 Myocardial infarction type 2; I50.43 Acute on chronic combined systolic (congestive) and diastolic (congestive) heart failure; J96.21 Acute and chronic respiratory failure with hypoxia; J18.9 Pneumonia, unspecified organism; T82.858A Stenosis of other vascular prosthetic devices, implants and grafts, initial encounter; J44.1 Chronic obstructive pulmonary disease with (acute) exacerbation; J93.83 Other pneumothorax; J44.0 Chronic obstructive pulmonary disease with (acute) lower respiratory infection; E78.5 Hyperlipidemia, unspecified; E05.90 Thyrotoxicosis, unspecified without thyrotoxic crisis or storm; I25.10 Atherosclerotic heart disease of native coronary artery without angina pectoris; E11.51 Type 2 diabetes mellitus with diabetic peripheral angiopathy without gangrene; Y83.8 Other surgical procedures as the cause of abnormal reaction of the patient, or of later complication, without mention of misadventure at the time of the procedure; Z20.822 Contact with and (suspected) exposure to COVID-19; Z88.8 Allergy status to other drugs, medicaments and biological substances; Z79.82 Long term (current) use of aspirin; Z79.899 Other long term (current) drug therapy; Z85.828 Personal history of other malignant neoplasm of skin; Z85.810 Personal history of malignant neoplasm of tongue; Z85.89 Personal history of malignant neoplasm of other organs and systems; Z95.2 Presence of prosthetic heart valve; Z89.612 Acquired absence of left leg above knee; Z79.4 Long term (current) use of insulin; Y92.89 Other specified places as the place of occurrence of the external cause
CPT/HCPCS: 36415; 71045; 71275; 75989; 80048; 80053; 81001; 82150; 82948; 83036; 83605; 83690; 83735; 83880; 84100; 84484; 85025; 85610; 85730; 87040; 87081; 87086; 87635-QW; 93005; 94640; 99291; J0456; J1650; J1815; J1940; J2001; J2405; J2920; J7060; Q0092; Q9967